=== PATIENT | male | born 1955 | race Caucasian/White ===

== ENCOUNTER 2020-05-19 09:13 | Outpatient (RCR) | payer MEDICARE, BC, SELFPAY ==
[2020-05-19] MEDS: COVID-19 VACC, MRNA(PFIZER)/PF 30 MCG/0.3 ML SYRINGE IM (12:29)
[2020-06-10] MEDS: COVID-19 VACC, MRNA(PFIZER)/PF 30 MCG/0.3 ML SYRINGE IM (10:37)
== END 2020-08-19 23:59 ==
LOC: IMMUN 09:13
PROVIDERS: PCP Internal Medicine; Visit Provider Family Medicine
DX: Z23 Encounter for immunization (principal)
CPT/HCPCS: 0001A; 0002A; 91300

== ENCOUNTER 2023-09-12 10:55 | Observation (INO) | payer MEDICARE, BC, SELFPAY ==
[2023-09-12] VITALS (9 sets, daily range): BP systolic 137–155; BP diastolic 73–97; PULSE 53–69; RESP 12–18; TEMP 36–36.6; O2SAT 96–100; BMI 26.2; BMI 24.5
--- NOTE | 2023-09-12 11:10 | EKG12_ITS ---
Test Reason : CP Blood Pressure : / mmHG Vent. Rate : 064 BPM Atrial Rate : 064 BPM P-R Int : 152 ms QRS Dur : 094 ms QT Int : 388 ms P-R-T Axes : 058 039 009 degrees QTc Int : 400 ms Normal sinus rhythm Normal ECG When compared with ECG of 28-JUN-2022 08:49, Sinus rhythm has replaced Electronic atrial pacemaker QRS duration has decreased Confirmed by NELIA HENDERSON, AJITH ([id number]), editorial clerk FAUSTINO MARRUFO ([id number]) on 09/13/2023 5:59:53 AM Referred By: Confirmed By:AJITH PICKENS MD
[2023-09-12] MEDS: Aspirin 81 MG TAB.CHEW 324 MG PO (11:29)
[2023-09-12 11:30] LABS: Absolute Lymphocyte Count 0.91 X10^3/uL (0.83-4.51); Absolute Neutrophil Count 3.3 X10^3/uL (2.0-7.7); Basophil# 0.04 X10^3/uL; Basophil% 0.8 % (0-1); Eosinophil# 0.05 X10^3/uL; Hematocrit 45.5 % (40-54); Hemoglobin 15.5 g/dL (13.0-16.5); Lymphocyte # 0.91 X10^3/ul (0.83-4.51); Mean Corp Hgb Conc 34.1 g/dL (32-36); Mean Corpuscular Hgb 31.3 pg (27.0-32.0); Mean Corpuscular Volume 91.7 fL (80-94); Mean Platelet Vol. 10.2 fl (6.2-12.0); Monocyte# 0.43 X10^3/uL; NRBC Flagged by Analyzer 0 % (0-5); Neutrophil # 3.34 X10^3/uL (2.7-7.7); Platelet Count 141 K/mm3 (150-450); RBC Distribution Width CV 11.8 % (11.6-14.6); RBC Distribution Width SD 39.8 fl (35.1-43.9); Red Blood Count 4.96 M/mm3 (4.6-6.2); White Blood Count 4.8 K/mm3 (4.4-11.0)
--- NOTE | 2023-09-12 11:45 | RAD_ITS ---
INDICATION: chest pain EXAMINATION/TECHNIQUE: X-RAY - XR Chest 2 Views COMPARISON: Prior study dated: 04/11/2008 FINDINGS: LINES/DEVICES: None. LUNGS: No consolidation, edema or effusion. No pneumothorax. MEDIASTINUM AND CARDIOVASCULAR STRUCTURES: Cardiac silhouette not enlarged. Central airways and mediastinal contour are unremarkable. BONES AND SOFT TISSUES: Degenerative changes of the thoracic spine. RAD/Chest PA and Lateral IMPRESSION: No radiographic evidence of acute cardiopulmonary disease. Electronically Signed: Aubrey Rubin MD at 12:01 EDT ,
[2023-09-12 11:48] LABS: Anion Gap 5 (5-15); BUN 20 mg/dL (7-18); BUN/Creat Ratio 20.7 RATIO (10-20); Calcium,Total 9.2 mg/dL (8.5-10.1); Chloride 103 mmol/L (98-107); Creatinine, Serum 0.97 mg/dL (0.70-1.30); EST Glomerular Filtration Rate 82 mL/min (>60); Est Glom Filt Rate - Afr Amer 99 mL/min (>60); Glucose 100 mg/dL (74-106); Magnesium 2.3 mg/dL (1.6-2.6); Potassium 4.1 mmol/L (3.5-5.1); Sodium Level 140 mmol/L (136-145); Troponin-I HS (w/2H Reflex) 8 pg/mL (3.0-78.0)
--- NOTE | 2023-09-12 11:57 | ED.VIS.CHEST ---
HPI History of Present Illness Chief Complaint: Chest Pain Informant: patient Narrative Narrative: Patient 68-year-old male with history of palpitations (on atenolol), hyperlipidemia on Zetia and remote history of tobacco use presenting with chest pain. Patient's been having exertional chest pain for the past few weeks. He notes he does not get it at rest. It is a discomfort over the center of his chest that radiates to both shoulders on the anterior aspect. He also notes that he had some discomfort in his right shoulder blade for the past few weeks but that that was more from overdoing it at home. Denies any associate numbness or tingling. Does have a lot of anxiety so is not sure if this is related. Denies any swelling of his legs. Denies any history of DVT or PE. Denies any shortness of breath or difficulty breathing. No other complaints or concerns reported at this time. States has been a couple years since his last stress test. He called his PCP today about his symptoms who instructed him to go to the ER for further evaluation. [facility] Medical History Heart disease High cholesterol Home Medications ?Medication ?Instructions ?Recorded ?Last Taken ?Type atenolol 50 mg tablet 25 mg PO BID BLOOD PRESSURE 09/12/23 Unknown History ezetimibe 10 mg tablet 10 mg PO DAILY CHOLESTEROL 09/12/23 Unknown History Allergy/AdvReac Type Severity Reaction Status Date / Time No Known Allergies Allergy Verified 09/12/23 10:56 Social History Smoking Status: Never smoker ROS ROS ED Constitutional Constitutional ED: Denies chills or fever(s) Cardiovascular Cardiovascular: Reports chest pain Respiratory/Chest Respiratory/Chest: Denies cough or dyspnea Gastrointestinal Gastrointestinal: Denies abdominal pain, nausea or vomiting Musculoskeletal Musculoskeletal: Denies back pain Neurologic Neurologic: Denies headache(s) or paresthesias Psychiatric Psychiatric: Reports anxiety Hematologic/Lymphatic Hematologic/Lymphatic: Denies easy bleeding or easy bruising EXAM Physical Exam Const Vital Signs: 09/12/23 10:55 09/12/23 10:56 09/12/23 11:10 Temperature 96.8 F L Temperature Source Temporal Pulse Rate 69 Respiratory Rate 18 Respiratory Effort Normal Non-Labored Blood Pressure 152/87 H Blood Pressure Mean 108 Pulse Ox 100 Oxygen Delivery Method Room Air Room Air 09/12/23 12:55 09/12/23 14:00 Temperature Temperature Source Pulse Rate 57 L 55 L Respiratory Rate 12 13 Respiratory Effort Blood Pressure 140/97 H 149/88 H Blood Pressure Mean 111 108 Pulse Ox 100 99 Oxygen Delivery Method Room Air Room Air Positive well nourished and well developed General Appearance ED: well developed and NAD HEENT Reports moist mucous membranes Neck supple and no JVD Chest Wall inspection of chest normal and palpation of chest normal Resp normal respiratory effort and clear to auscultation bilaterally Cardio regular rate, regular rhythm and no murmurs Peripheral Pulses: radial pulses present and dorsalis pedis pulses present GI normal to inspection, nondistended, normoactive bowel sounds and soft to palpation Extremity normal to inspection General Extremety ED: Negative for edema General Extremity: Negative for edema Neuro oriented x3 Sensorium / Orientation: awake and alert Motor Exam: Negative for general weakness Psych mental status grossly normal Skin no rashes or lesions noted Heart Score History: Highly Suspicious ECG: Normal Age: >/= 65 years Risk Factors: 1 or 2 Risk Factors Troponin: </= Normal Limit Score: 5 MDM MDM MDM Narrative Medical decision making narrative: Patient is evaluated for a couple weeks to 1 month of exertional chest pain. He states it builds up every time he walks. He does not have it at rest. Is in the center of his chest that goes across to both of his shoulders. Currently does not have any symptoms. Story is concerning for exertional angina. Has not had a recent cardiac evaluation including a stress test. Does have some cardiac risk factors include hyperlipidemia, hypertension and history of tobacco use. Cardiac workup in the ER is normal. Low suspicion pulmonary emboli given that he is not having any leg swelling, shortness of breath, tachycardia or hypoxia. Case is discussed with hospitalist, Dr. Begum, patient will be admitted for further cardiac evaluation. He is agreeable this plan of care. Patient is given full dose aspirin in the emergency room. History & Record Review Additional record(s) reviewed:: No prior records Lab Data Attestation: I reviewed the patient's lab results. Labs: Laboratory Results - last 24 hr 09/12/23 09/12/23 11:25 13:31 WBC 4.8 RBC 4.96 Hgb 15.5 Hct 45.5 MCV 91.7 MCH 31.3 MCHC 34.1 RDW Std Deviation 39.8 RDW Coeff of Karen 11.8 Plt Count 141 L MPV 10.2 Immature Gran % (Auto) 0.200 Neut % (Auto) 70.0 Lymph % (Auto) 19.0 Rowan % (Auto) 9.0 Eos % (Auto) 1.0 Baso % (Auto) 0.8 Absolute Neuts (auto) 3.3 Absolute Lymphs (auto) 0.91 Nucleated RBC % 0 Sodium 140 Potassium 4.1 Chloride 103 Carbon Dioxide 32.0 Anion Gap 5 BUN 20 H Creatinine 0.97 Estim Creat Clear Calc 67.20 Est GFR (MDRD) Af Amer 99 Est GFR (MDRD) Non-Af 82 BUN/Creatinine Ratio 20.7 H Glucose 100 Calcium 9.2 Magnesium 2.3 Troponin I High Sens 8 10 Radiography Chest X-Ray - ED: 2 View, Read by ED Physician, Read by Radiologist and No Acute Disease Diagnostic Testing: Clinical Impression(s) from Imaging Studies Chest X-Ray 09/12/23 11:45 IMPRESSION: No radiographic evidence of acute cardiopulmonary disease. Electronically Signed: Aubrey Rubin MD at 12:01 EDT , Rhythm Strip Rhythm Strip: Sinus Rhythm Rate: 64 Ectopy: None EKG Initial EKG: Attestation: I personally reviewed and interpreted this EKG as follows: Interpretation: Sinus Rhythm Comments: Normal sinus rhythm at a rate of 64 bpm Normal axis Normal intervals Normal ST segments Compared to prior EKG on 04/06/2008, no acute changes Prior EKG tracings: available for review Prior: Unchanged Management Discussion w/another healthcare provider: Hospitalist Discharge Plan Triage Chief Complaint: Chest Pain ED Provider: Karen Almonte Dx/Rx/DC Orders Clinical Impression: Angina of effort Prescriptions: No Action atenolol 50 mg tablet 25 mg PO BID ezetimibe 10 mg tablet 10 mg PO DAILY Primary Care Provider: Josette Knapp Referrals: Josette Knapp MD [Primary Care Provider] - Print Language: Nauruan Disposition Disposition: Acute Care Hospital [facility]
[2023-09-12 13:26] LABS: Reflex Troponin-HS? (from REC) Y
[2023-09-12 13:55] LABS: Troponin-I HS 10 pg/mL (3.0-78.0)
--- NOTE | 2023-09-12 16:45 | HP.PCM.HOS_ITS ---
HPI - General General Date of Admission: 09/12/23 Date of Service: 09/12/23 Chief Complaint: Chest discomfort HPI Narrative VERENICE EDWARD, is a 68 M with a history of heart palpitations on atenolol who presented to [facility] ED 09/12/2023 due to 3 weeks of some upper chest pain when he goes on walks and sometimes at rest. In the ED workup negative but given age and symptoms hospitalist contacted for admission. Patient evaluated with family member at bedside. He reports he goes on walks every day and sometimes will get this chest pain sometimes it is in his epigastric region sometimes it is across his upper chest, does report he has anxiety and had an episode where he had little pains all across his upper chest and is feeling anxious but went to bed and was gone in the morning. He called his doctor on Tuesday and they advised to go to the ED which she decided to you today, was able to say why today specifically but felt he needed to get evaluated per his PCPs recommendation. Did have an episode where he felt tired after shoveling snow at the age of 39 and had a cardiac workup at that time which was negative and also previously had a problem with heart palpitations and racing heart and has been on atenolol which significantly helped and has been taking this. Does report chronic problems with anxiety but had no other specific or acute complaints. [facility] Medical History Heart disease High cholesterol Home Medications ?Medication ?Instructions ?Recorded ?Last Taken ?Type atenolol 50 mg tablet 25 mg PO BID BLOOD PRESSURE 09/12/23 Unknown History ezetimibe 10 mg tablet 10 mg PO DAILY CHOLESTEROL 09/12/23 Unknown History Allergy/AdvReac Type Severity Reaction Status Date / Time No Known Allergies Allergy Verified 09/12/23 10:56 Social History Smoking Status: Never smoker ROS ROS Narrative General: Denies fever/chills HENT: Denies headache, often has 1 side of his nose stuffed up, denies sore throat EYES: Denies changes in vision Resp: Denies cough, denies shortness of breath Cardiac: Sometimes epigastric and sometimes upper chest discomfort GI: Denies abdominal pain, denies changes in bowel, denies nausea/vomiting : Denies changes in urination Extremity: Denies swelling MSK: Denies weakness Neuro: Denies any numbness/tingling Heme: Denies any bleeding or bruising Skin: Denies rashes Psychiatric: No complaints voiced Vital Signs Vital Signs Vital Signs: 09/12/23 10:55 09/12/23 10:56 09/12/23 11:10 Temperature 96.8 F L Temperature Source Temporal Pulse Rate 69 Respiratory Rate 18 Respiratory Effort Normal Non-Labored Blood Pressure 152/87 H Blood Pressure Mean 108 Pulse Ox 100 Oxygen Delivery Method Room Air Room Air 09/12/23 12:55 09/12/23 14:00 09/12/23 15:44 Temperature 97.9 F Temperature Source Pulse Rate 57 L 55 L 53 L Respiratory Rate 12 13 14 Respiratory Effort Blood Pressure 140/97 H 149/88 H 147/83 H Blood Pressure Mean 111 108 104 Pulse Ox 100 99 99 Oxygen Delivery Method Room Air Room Air 09/12/23 16:00 Temperature Temperature Source Pulse Rate 56 L Respiratory Rate 14 Respiratory Effort Blood Pressure 146/84 H Blood Pressure Mean 104 Pulse Ox 99 Oxygen Delivery Method Room Air Weight Weight: 76.067 kg Body Mass Index (BMI) 26.2 Physical Exam Narrative General: Alert, oriented, no apparent distress HEENT: Atraumatic, normocephalic Eyes: Anicteric, normal conjunctiva, extraocular movements grossly intact Neck: Supple Respiratory: Clear to auscultation bilaterally, normal respiratory effort Cardiovascular: Regular rate and rhythm GI: Soft, nontender, nondistended Extremities: No edema Musculoskeletal: Moving all extremities Neuro: No overt focal neurological deficits Skin: No rashes appreciated Psych: Cooperative Results Lab / Micro Data 09/12/23 11:25 09/12/23 11:25 Labs: Laboratory Results - last 24 hr 09/12/23 11:25: WBC 4.8, RBC 4.96, Hgb 15.5, Hct 45.5, MCV 91.7, MCH 31.3, MCHC 34.1, RDW Std Deviation 39.8, RDW Coeff of Karen 11.8, Plt Count 141 L, MPV 10.2, Immature Gran % (Auto) 0.200, Neut % (Auto) 70.0, Lymph % (Auto) 19.0, [place]born % (Auto) 9.0, Eos % (Auto) 1.0, Baso % (Auto) 0.8, Absolute Neuts (auto) 3.3, Absolute Lymphs (auto) 0.91, Nucleated RBC % 0, Sodium 140, Potassium 4.1, Chloride 103, Carbon Dioxide 32.0, Anion Gap 5, BUN 20 H, Creatinine 0.97, Estim Creat Clear Calc 67.20, Est GFR (MDRD) Af Amer 99, Est GFR (MDRD) Non-Af 82, B UN/Creatinine Ratio 20.7 H, Glucose 100, Calcium 9.2, Magnesium 2.3, Troponin I High Sens 8 09/12/23 13:31: Troponin I High Sens 10 Rhythm Strip Rhythm Strip: Sinus Rhythm Rate: 64 Ectopy: None Imaging Radiology Impression Chest X-Ray 09/12/23 11:45 IMPRESSION: No radiographic evidence of acute cardiopulmonary disease. Electronically Signed: Aubrey Rubin MD at 12:01 EDT Reading Location ID and State: [facility] / [place] Tel , Service support , Assessment & Plan Assessment/Plan (1) Chest pain: PLAN: Plan #Chest pain -EKG no notable ST changes -Trop within normal limits -Admit to telemetry -Echo ordered -Aspirin -Statin -Lipid panel in AM -Stress test ordered for AM #Hx palpitations -Admitting to tele -on atenolol #DVT ppx: Lovenox Mable Begum MD Time spent in the patient's overall evaluation,decision-making process, review of diagnostic data, adjustment of management, discussion with other providers, nursing nursing and ancillary staff involved in patient's care documentation, 41 minutes Charges/Coding Visit Charges Inpatient E&M: 98334 Init Hosp L1
--- NOTE | 2023-09-12 17:38 | ECHOD_ITS ---
Reason For Study: CHEST PAIN Procedure This was a 2D Doppler, Color Flow transthoracic echocardiogram. Exam performed in department. Left Ventricle Normal LV size. Left ventricular systolic function is normal. The left ventricular ejection fraction is 60 %. No regional wall motion abnormalities noted. Right Ventricle Normal RV size. Normal systolic function. Atria Normal left atrium. Normal right atrium. Mitral Valve Normal mitral valve. Mild (1+) eccentric mitral valve insufficiency. Tricuspid Valve Normal tricuspid valve. Mild tricuspid valve insufficiency. Pulmonary artery systolic pressure is 24 mmHg. Aortic Valve Trisinus/trileaflet aortic valve. Pulmonic Valve Normal pulmonic valve. Great Vessels Normal aortic root. The pulmonary artery is normal size. Normal inferior vena cava. Pericardium/Pleural No pericardial effusion. MMode/2D Measurements & Calculations LVIDd: 3.9 cm IVSd: 1.3 cm LVOT diam: 2.0 cm LVIDs: 2.0 cm LVPWd: 0.94 cm LVOT area: 3.3 cm2 RVDd: 3.7 cm FS: 49.6 % Ao root diam: 3.8 cm LAV(MOD-bp): 49.9 ml LVAd ap4: 23.6 cm2 LAV(MOD-bp) Indexed: 26.6 ml/m2 LVLd ap4: 7.4 cm LAV(MOD-sp2): 57.3 ml EDV(MOD-sp4): 61.5 ml LAV(MOD-sp4): 38.0 ml EDV(sp4-el): 64.1 ml LVAs ap4: 11.4 cm2 LVLs ap4: 6.0 cm ESV(MOD-sp4): 19.8 ml ESV(sp4-el): 18.5 ml EF(MOD-sp4): 67.8 % EF(sp4-el): 71.1 % LVAd ap2: 23.0 cm2 SV(MOD-sp4): 41.7 ml SV(MOD-sp2): 40.7 ml LVLd ap2: 7.7 cm EDV(MOD-sp2): 57.4 ml EDV(sp2-el): 58.4 ml LVAs ap2: 10.9 cm2 LVLs ap2: 6.2 cm ESV(MOD-sp2): 16.6 ml ESV(sp2-el): 16.2 ml EF(MOD-sp2): 71.0 % SV(sp4-el): 45.6 ml LA dimension(2D): 3.2 cm LA A4 area: 15.2 cm2 RA A4 area: 12.3 cm2 TAPSE: 1.7 cm Time Measurements MV dec time: 0.27 sec Doppler Measurements & Calculations MV E max hammad: 62.3 cm/sec Lat Peak E' Hammad: 9.0 cm/sec Med Peak E' Hammad: 7.8 cm/sec MV A max hammad: 57.6 cm/sec E/E' lat: 6.9 E/E' med: 8.0 MV E/A: 1.1 Ao V2 max: 128.1 cm/sec LV V1 max: 97.6 cm/sec MV dec slope: 232.4 cm/sec2 Ao max P.6 mmHg LV V1 max P.8 mmHg Ao V2 mean: 97.9 cm/sec LV V1 mean P.3 mmHg Ao mean P.1 mmHg LV V1 mean: 71.3 cm/sec Ao V2 VTI: 29.6 cm LV V1 VTI: 23.4 cm AV (velocity ratio): 0.79 GARY(I,D): 2.6 cm2 GARY(V,D): 2.5 cm2 SV(LVOT): 76.3 ml PA V2 max: 73.1 cm/sec TR max hammad: 228.4 cm/sec PA max PG (full): 0.17 mmHg TR max P.9 mmHg ECHO/Echo Complete Interpretation Summary Normal LV size. Left ventricular systolic function is normal. The left ventricular ejection fraction is 60 %. Mild (1+) eccentric mitral valve insufficiency. Mild tricuspid valve insufficiency. Pulmonary artery systolic pressure is 24 mmHg. Ordering Physician: Mable Begum Referring Physician: Josette Knapp M.D. Performed By: Angely Yun RDCS
--- NOTE | 2023-09-12 19:48 | EKG12_ITS ---
Test Reason : CP ADMIT Blood Pressure : / mmHG Vent. Rate : 062 BPM Atrial Rate : 062 BPM P-R Int : 148 ms QRS Dur : 092 ms QT Int : 400 ms P-R-T Axes : 048 037 028 degrees QTc Int : 406 ms Normal sinus rhythm Normal ECG When compared with ECG of 12-SEP-2023 11:15, MANUAL COMPARISON REQUIRED, DATA IS UNCONFIRMED Confirmed by Andrae Meyer ([id number]), legal editor FAUSTINO MARRUFO ([id number]) on 09/13/2023 8:36:59 AM Referred By: Confirmed By:Andrae Meyer
[2023-09-12] MEDS: Atenolol 25 MG Tablet PO (21:48)
[2023-09-13] VITALS (7 sets, daily range): BP systolic 116–144; BP diastolic 70–90; PULSE 54–63; RESP 16–18; TEMP 36.3–36.8; O2SAT 98–100
[2023-09-13 05:33] LABS: Absolute Lymphocyte Count 1.25 X10^3/uL (0.83-4.51); Absolute Neutrophil Count 3.3 X10^3/uL (2.0-7.7); Basophil# 0.04 X10^3/uL; Basophil% 0.8 % (0-1); Eosinophil# 0.16 X10^3/uL; Eosinophils% 3.1 % (0-5); Hematocrit 43.1 % (40-54); Hemoglobin 14.5 g/dL (13.0-16.5); Lymphocyte # 1.25 X10^3/ul (0.83-4.51); Mean Corp Hgb Conc 33.6 g/dL (32-36); Mean Corpuscular Hgb 30.7 pg (27.0-32.0); Mean Corpuscular Volume 91.3 fL (80-94); Mean Platelet Vol. 10.5 fl (6.2-12.0); Monocyte# 0.49 X10^3/uL; Monocyte% 9.4 % (0-10); NRBC Flagged by Analyzer 0 % (0-5); Neutrophil # 3.26 X10^3/uL (2.7-7.7); Neutrophil % 62.5 % (47-70); Platelet Count 132 K/mm3 (150-450); RBC Distribution Width CV 11.8 % (11.6-14.6); RBC Distribution Width SD 39.7 fl (35.1-43.9); Red Blood Count 4.72 M/mm3 (4.6-6.2); White Blood Count 5.2 K/mm3 (4.4-11.0)
--- NOTE | 2023-09-13 05:55 | EKG12_ITS ---
Test Reason : AM EKG Blood Pressure : / mmHG Vent. Rate : 062 BPM Atrial Rate : 062 BPM P-R Int : 150 ms QRS Dur : 090 ms QT Int : 410 ms P-R-T Axes : 068 052 005 degrees QTc Int : 416 ms Normal sinus rhythm Normal ECG When compared with ECG of 13-SEP-2023 05:56, MANUAL COMPARISON REQUIRED, DATA IS UNCONFIRMED Confirmed by Andrae Meyer ([id number]), production editor FAUSTINO MARRUFO ([id number]) on 09/16/2023 9:22:43 AM Referred By: Confirmed By:Andrae Meyer
[2023-09-13 06:00] LABS: International Normalized Ratio 1.1; Prothrombin Time (Protime)PT. 14.6 SECONDS (11.7-14.9)
[2023-09-13 06:24] LABS: Anion Gap 5 (5-15); BUN 19 mg/dL (7-18); BUN/Creat Ratio 22.6 RATIO (10-20); Calcium,Total 8.8 mg/dL (8.5-10.1); Chloride 108 mmol/L (98-107); Cholesterol 194 mg/dL (200); Creatinine, Serum 0.84 mg/dL (0.70-1.30); EST Glomerular Filtration Rate 96 mL/min (>60); Est Glom Filt Rate - Afr Amer 116 mL/min (>60); Glucose 98 mg/dL (74-106); High Density Lipoprotein 58 mg/dL; Potassium 3.6 mmol/L (3.5-5.1); Sodium Level 140 mmol/L (136-145); Thyroid Stim Hormone (TSH) 0.95 uIU/mL (0.358-3.74); Triglycerides 65 mg/dL; Very Low Density Lipoprotein 13 mg/dL (5-40)
[2023-09-13] MEDS: Aspirin E.C. 81 MG Tablet PO (06:36)
--- NOTE | 2023-09-13 08:55 | DS.PCM_ITS ---
Providers Date of Admission: 09/12/23 Date of Discharge: 09/13/23 Primary Care Physician: Dr. Josette Knapp MD Reason For Visit: CHEST PAIN R/O Diagnosis Discharge Diagnosis (1) Chest pain: Status: Acute Code(s): R07.9 - Chest pain, unspecified Medications at Discharge Home Medications atenolol 50 mg tablet 25 mg PO BID BLOOD PRESSURE 09/12/23 ezetimibe 10 mg tablet 10 mg PO DAILY CHOLESTEROL 09/12/23 Hospital Course Summary of Care Provided Minutes Spent on Discharge: 32 Hospital Course: Patient is a 68-year-old gentleman who presented with chest pain 1. Chest pain patient was placed on a monitored bed [place] was ruled out with serial cardiac enzymes subsequently underwent a nuclear stress test 2. History of palpitations ? Patient is on atenolol did continue and was placed on continuous daily 3. DVT prophylaxis ? SC Lovenox Physical Exam Narrative GENERAL: cooperative HEENT: Atraumatic; normocephalic EYES; Anicteric, Normal Conjunctiva NECK; supple, normal thyroid, RESPIRATORY: Diminished to auscultation CARDIOVASCULAR: Regular S1 S2, GI: soft, normoactive bowel sounds, : No Renal angle tenderness; EXTREMITIES: No edema, no clubbing, MUSCULOSKELETAL: no muscle wasting NEURO: Awake; no lateralizing signs. SKIN: No Rash PSYCH; Flat affect Weight / BMI Weight Weight: 73.3 kg Body Mass Index (BMI) 24.5 ABG / Lab / Microbiology Data 09/13/23 05:17 09/13/23 05:17 Laboratory: Laboratory Results - last 24 hr 09/12/23 11:25: WBC 4.8, RBC 4.96, Hgb 15.5, Hct 45.5, MCV 91.7, MCH 31.3, MCHC 34.1, RDW Std Deviation 39.8, RDW Coeff of Karen 11.8, Plt Count 141 L, MPV 10.2, Immature Gran % (Auto) 0.200, Neut % (Auto) 70.0, Lymph % (Auto) 19.0, Hettinger % (Auto) 9.0, Eos % (Auto) 1.0, Baso % (Auto) 0.8, Absolute Neuts (auto) 3.3, Absolute Lymphs (auto) 0.91, Nucleated RBC % 0, Sodium 140, Potassium 4.1, Chloride 103, Carbon Dioxide 32.0, Anion Gap 5, BUN 20 H, Creatinine 0.97, Estim Creat Clear Calc 67.20, Est GFR (MDRD) Af Amer 99, Est GFR (MDRD) Non-Af 82, B UN/Creatinine Ratio 20.7 H, Glucose 100, Calcium 9.2, Magnesium 2.3, Troponin I High Sens 8 09/12/23 13:31: Troponin I High Sens 10 09/13/23 05:17: WBC 5.2, RBC 4.72, Hgb 14.5, Hct 43.1, MCV 91.3, MCH 30.7, MCHC 33.6, RDW Std Deviation 39.7, RDW Coeff of Karen 11.8, Plt Count 132 L, MPV 10.5, Immature Gran % (Auto) 0.200, Neut % (Auto) 62.5, Lymph % (Auto) 24.0, Hettinger % (Auto) 9.4, Eos % (Auto) 3.1, Baso % (Auto) 0.8, Absolute Neuts (auto) 3.3, Absolute Lymphs (auto) 1.25, Nucleated RBC % 0, PT 14.6, INR 1.1, Sodium 140, Potassium 3.6, Chloride 108 H, Carbon Dioxide 27.0, Anion Gap 5, BUN 19 H, Creatinine 0.84, Estim Creat Clear Calc 80.30, Est GFR (MDRD) Af Amer 116, Est GFR (MDRD) Non-Af 96, BUN/Creatinine Ratio 22.6 H, Glucose 98, Calcium 8.8, Triglycerides 65, Cholesterol 194, LDL Cholesterol 123, VLDL Cholesterol 13, HDL Cholesterol 58, TSH 0.95 Radiography Diagnostic Testing: Radiology Impression Chest X-Ray 09/12/23 11:45 IMPRESSION: No radiographic evidence of acute cardiopulmonary disease. Electronically Signed: Aubrey Rubin MD at 12:01 EDT , D/C Instructions Discharge Diet: No restrictions Discharge Activity: Return to Normal Activity Call your doctor if you observe: Fever of 101 or Higher, Shortness of breath, Fainting spells and Chest pain Meaningful Use Info Meaningful Use Meaningful Use Diagnoses (Choose all that apply): None applicable Ischemic Stroke Statin Dosing Therapy Reference: STATIN DOSE THERAPY REFERENCE: * Patients > 75 years receive moderate or high dose statin therapy. * Patients 75 years or YOUNGER should receive HIGH intensity statin dose unless contraindicated. You will be required to document reason for non-treatment if statin daily dose does not meet guidelines. HIGH DOSE STATIN THERAPY DAILY Atorvastatin > than or = to 40 mg Rosuvastatin > than or = to 20 mg Amlodipine + Atorvastatin > than or = to 2.5/40 mg Ezetimibe + Simvastatin 10/80 mg Simvastatin 80mg Discharge Plan Admission Admit Date/Time: 09/12/23 16:45 Attending Provider: Fred Izaguirre Primary Care Provider: Josette Knapp Consulting Providers: Mable Begum Discharge Orders/Prescriptions Prescriptions: Continued atenolol 50 mg tablet 25 mg PO BID ezetimibe 10 mg tablet 10 mg PO DAILY Referrals / Follow Up: Josette Knapp MD [Primary Care Provider] - Disposition Disposition (needs filled in before D/C Order can be placed): Home, Self Care Charges/Coding Visit Charges Inpatient E&M: 45429 Disch Hosp >30min
[2023-09-13] MEDS: Atenolol 25 MG Tablet PO ×2 (12:12→21:29)
[2023-09-13] MEDS: Ezetimibe 10 MG Tablet PO (12:12)
--- NOTE | 2023-09-13 16:13 | STRESSREP ---
Stress Test Report Exercise myocardial perfusion stress test. 68-year-old man with a history of chest pain Stress protocol: Resting EKG demonstrates normal sinus rhythm with a rate of 58 bpm resting blood pressure is 142/79 mmHg. The patient exercised according to the regular Chavez protocol for a total duration of 6 minutes and 32 seconds attaining a maximum heart rate of 120 bpm which was 79% of maximum predicted heart rate; the maximum workload was 8.6 metabolic equivalents. At rest there were no ST or T wave changes noted to suggest ischemia and at peak exercise [address] depression was noted in lead V5 and V6 and less than [address] depression noted in the inferior leads suggestive of ischemia. Patient also experienced minimal chest heaviness. This appeared to ease up upon discontinuation of the exercise. The peak blood pressure was 160/70 mmHg with a rate-pressure product of 16,000. Myocardial perfusion protocol. 12 mCi of technetium 99m sestamibi was injected at rest. The patient exercised according to regular Chavez protocol for total duration of 6 minutes and 32 seconds and at peak exercise 34.7 mCi of technetium 99m sestamibi was injected stress images were obtained stress and rest images were reconstructed in comparing the short axis vertical long and horizontal long axis. Gated images were also obtained. Perfusion SPECT analysis: Review of the stress images demonstrate normal uptake of tracer noted in all areas of the myocardium. The basal inferior wall appeared to have significant GI attenuation artifact and ischemia cannot be completely excluded. The resting images demonstrate normal perfusion in all areas. Gated SPECT analysis: The gated ejection fraction is 60%. Conclusion: Abnormal exercise myocardial perfusion stress test at a moderate workload with EKG changes Preserved ejection fraction. Chest discomfort of unknown etiology.
--- NOTE | 2023-09-13 16:23 | PN.HOSP_ITS ---
Reason for Visit Reason for Visit: Diagnoses Chest pain, unspecified (09/12/23) Subjective Subjective Patient is a 68-year-old gentleman who presented with chest pain Objective Data Objective Data Vital Signs: Vital Signs Temp Pulse Resp BP Pulse Ox O2 Del Method FiO2 97.6 F L 58 L 16 144/90 H 100 Room Air 100 09/13/23 12:19 09/13/23 15:50 09/13/23 15:50 09/13/23 12:19 09/13/23 15:50 09/13/23 15:50 09/12/23 18:48 Oxygen Delivery Method Room Air Weight: 73.3 kg Body Mass Index (BMI) 24.5 Intake & Output: Intake and Output for Last 24 Hours 09/11/23 09/12/23 09/13/23 23:59 23:59 23:59 Intake Total 50 / 50 50 / 50 Balance 50 / 50 50 / 50 Lab / Micro Data 09/13/23 05:17 09/13/23 05:17 Labs: Laboratory Results - last 24 hr 09/13/23 05:17: WBC 5.2, RBC 4.72, Hgb 14.5, Hct 43.1, MCV 91.3, MCH 30.7, MCHC 33.6, RDW Std Deviation 39.7, RDW Coeff of Karen 11.8, Plt Count 132 L, MPV 10.5, Immature Gran % (Auto) 0.200, Neut % (Auto) 62.5, Lymph % (Auto) 24.0, [place] % (Auto) 9.4, Eos % (Auto) 3.1, Baso % (Auto) 0.8, Absolute Neuts (auto) 3.3, Absolute Lymphs (auto) 1.25, Nucleated RBC % 0, PT 14.6, INR 1.1, Sodium 140, Potassium 3.6, Chloride 108 H, Carbon Dioxide 27.0, Anion Gap 5, BUN 19 H, Creatinine 0.84, Estim Creat Clear Calc 80.30, Est GFR (MDRD) Af Amer 116, Est GFR (MDRD) Non-Af 96, BUN/Creatinine Ratio 22.6 H, Glucose 98, Calcium 8.8, Triglycerides 65, Cholesterol 194, LDL Cholesterol 123, VLDL Cholesterol 13, HDL Cholesterol 58, TSH 0.95 Radiography Diagnostic Testing: Radiology Impression Echocardiogram 09/12/23 17:38 Interpretation Summary Normal LV size. Left ventricular systolic function is normal. The left ventricular ejection fraction is 60 %. Mild (1+) eccentric mitral valve insufficiency. Mild tricuspid valve insufficiency. Pulmonary artery systolic pressure is 24 mmHg. Ordering Physician: Mable Begum Referring Physician: Josette Knapp M.D. Performed By: Angely Yun RDCS Rhythm Strip Rhythm Strip: Sinus Rhythm Rate: 64 Ectopy: None Assessment & Plan Assessment/Plan (1) Chest pain: PLAN: Plan Patient is a 68-year-old gentleman who presented with chest pain 1. Chest pain patient was placed on a monitored bed [place] was ruled out with serial cardiac enzymes subsequently underwent a nuclear stress test. EKG prior did demonstrate ischemic changes moreover patient did have chest pain. The nuclear images were negative for stress induced ischemia though. Case subsequently discussed with Dr. Manzo with cardiology plan is for patient to undergo left heart catheterization on 09/14/2023. He will be kept n.p.o. after midnight 2. History of palpitations ? Patient did have runs of nonsustained VT on the monitor. On atenolol did continue . -2D echo obtained did show Normal LV size. Left ventricular systolic function is normal. The left ventricular ejection fraction is 60 %. Mild (1+) eccentric mitral valve insufficiency. Mild tricuspid valve insufficiency. Pulmonary artery systolic pressure is 24 mmHg. 3. DVT prophylaxis ? SC Lovenox Time spent in the patient's overall evaluation,decision-making process, review of diagnostic data, adjustment of management, discussion with other providers, nursing nursing and ancillary staff involved in patient's care documentation, 52Minutes Advance planning; did discuss with the patient and family regarding advanced directives as well as CODE STATUS. Did explain the various scenarios involved ( FULL CODE, DNR CCA, DNR CCA with no intubation, and DNR CC and what each meant) patient elected to remain full code with CPR and intubation if warranted. Order was placed. Time spent on discussion 16 minutes. Charges/Coding Multi Select Codes Visit Charges Visit Charges: 11636 Subs Hosp L3 Hospitalists' Procedures Procedures: 98812 Advncd Care Plan 30 Min
--- NOTE | 2023-09-13 16:49 | CASEMGMT ---
Met with patient to complete DOMINIQUE form. DOMINIQUE form explained to patient who voiced understanding and signed form. Original form placed in pt?s chart and copy provided to patient. [place]mery [place], Discharge Planning Asst
--- NOTE | 2023-09-13 17:26 | PCM.CONS.C ---
Assessment & Plan Assessment/Plan (1) Chest pain: PLAN: He presents with chest discomfort and is noted to have an abnormal stress test. My recommendation will be for him to at this juncture undergo a cardiac catheterization for definitive evaluation of his coronary anatomy. In addition especially in light of the fact that he had nonsustained ventricular tachycardia despite a preserved ejection fraction to be helpful to make sure that this is not idiopathic. I explained the above to him the risk benefits alternatives he understands and agrees to proceed. This has been discussed also with the hospitalist. Thank you for allowing me to participate in the care of your patient. Please don't hesitate to call if any issues arise. HPI Consult Data Date of Consult: 09/13/23 HPI Narrative HPI Narrative: VERENICE EDWARD, is a 68 M who presents to the emergency room with upper chest discomfort when he goes walks and sometimes at rest. It is not clear why he decided to come to the emergency room yesterday. But he has had a history of palpitations in the past for which he says that atenolol has helped significantly with this. He also has a history of anxiety. He describes this discomfort is across his chest sometimes radiating to his epigastrium. He was evaluated in the emergency room EKG was noted to be normal sinus rhythm with no acute changes cardiac enzymes were normal and he was admitted for a stress test. He underwent a stress test where there was reproducibility in the chest discomfort with some ST depression though the cardiac images were normal. After discussion with the hospitalist it was felt that he should be seen by cardiology for further workup and evaluation. He also while on admission had a 9 beat run of nonsustained VT. FORMERLY [facility] Medical History Heart disease High cholesterol Home Medications ?Medication ?Instructions ?Recorded ?Last Taken ?Type atenolol 50 mg tablet 25 mg PO BID BLOOD PRESSURE 09/12/23 Unknown History ezetimibe 10 mg tablet 10 mg PO DAILY CHOLESTEROL 09/12/23 Unknown History Allergy/AdvReac Type Severity Reaction Status Date / Time No Known Allergies Allergy Verified 09/12/23 10:56 Social History Smoking Status: Former smoker ROS Constitutional Constitutional: Denies fever(s) or weight loss Eyes Eyes: Reports systems reviewed and no addt'l complaints, except as documented ENT HEENT: Reports systems reviewed and no addt'l complaints, except as documented Cardiovascular Cardiovascular: Reports chest pain with activity and dyspnea on exertion; Denies chest pain at rest, dyspnea at rest, edema, palpitations or paroxysmal nocturnal dyspnea Respiratory/Chest Respiratory/Chest: Denies dyspnea on exertion, productive cough, shortness of breath at rest or shortness of breath with exertion Gastrointestinal Gastrointestinal: Denies change in bowel habits, nausea, vomiting or weight changes Genitourinary Genitourinary: Denies difficulty urinating Musculoskeletal Musculoskeletal: Denies joint stiffness or muscle weakness Integumentary Integumentary: Denies lesions Neurologic Neurologic: Denies dizziness or syncope Psychiatric Psychiatric: Denies anxiety Endocrine Endocrinology: Denies excessive sweating or fatigue Hematologic/Lymphatic Hematologic/Lymphatic: Denies anemia Allergic/Immunologic Allergic/Immunologic: Denies seasonal rhinorrhea Physical Exam Const alert, oriented x3 and no apparent distress General Appearance: cooperative HEENT hearing grossly normal bilaterally Head and Scalp: atraumatic Eyes EOMs intact bilaterally Neck General: normal visual inspection Chest inspection of chest normal and palpation of chest normal Resp normal respiratory effort Auscultation: clear to auscultation bilaterally Cardio regular rate, regular rhythm, S1 normal heart sound and S2 normal heart sound Jugular Venous Distention: JVD GI normal to inspection, nondistended, normoactive bowel sounds Extremity normal capillary refill and no pedal edema Peripheral Pulses: Yes pulses 2+ throughout and femoral pulses present Skin no rashes or lesions noted Neuro oriented x3 and CN's II-XII intact bilaterally Psych Appearance: grossly normal and appropriate Risk Stratification Risk Stratification Applicable: Yes Age >/= 65: Yes >/= 3 CAD Risk Factors (HTN, HLD, DM, family hx of CAD, or current smoker): No Aspirin Use in the Past 7 Days: No Severe Angina (>/= episodes in 24 hours): No EKG ST Changes >/= 0.5mm: No Positive Cardiac Marker: No BELKIS Risk Stratification Score: 1 BELKIS % Risk: 5% Risk Objective Data Vital Signs: Vital Signs Temp Pulse Resp BP Pulse Ox O2 Del Method FiO2 97.6 F L 58 L 16 144/90 H 100 Room Air 100 09/13/23 12:19 09/13/23 15:50 09/13/23 15:50 09/13/23 12:19 09/13/23 15:50 09/13/23 15:50 09/12/23 18:48 Oxygen Delivery Method Room Air Weight: 161 lb 9.581 oz Body Mass Index (BMI) 24.5 Intake & Output: Intake and Output for Last 24 Hours 09/11/23 09/12/23 09/13/23 23:59 23:59 23:59 Intake Total 50 / 50 50 / 50 Balance 50 / 50 50 / 50 Lab / Micro Data 09/13/23 05:17 09/13/23 05:17 Labs: Laboratory Results - last 24 hr 09/13/23 05:17: WBC 5.2, RBC 4.72, Hgb 14.5, Hct 43.1, MCV 91.3, MCH 30.7, MCHC 33.6, RDW Std Deviation 39.7, RDW Coeff of Karen 11.8, Plt Count 132 L, MPV 10.5, Immature Gran % (Auto) 0.200, Neut % (Auto) 62.5, Lymph % (Auto) 24.0, [place] % (Auto) 9.4, Eos % (Auto) 3.1, Baso % (Auto) 0.8, Absolute Neuts (auto) 3.3, Absolute Lymphs (auto) 1.25, Nucleated RBC % 0, PT 14.6, INR 1.1, Sodium 140, Potassium 3.6, Chloride 108 H, Carbon Dioxide 27.0, Anion Gap 5, BUN 19 H, Creatinine 0.84, Estim Creat Clear Calc 80.30, Est GFR (MDRD) Af Amer 116, Est GFR (MDRD) Non-Af 96, BUN/Creatinine Ratio 22.6 H, Glucose 98, Calcium 8.8, Triglycerides 65, Cholesterol 194, LDL Cholesterol 123, VLDL Cholesterol 13, HDL Cholesterol 58, TSH 0.95 Rhythm Strip Rhythm Strip: Sinus Rhythm Rate: 64 Ectopy: None Cardiology Labs/Tests 09/13/23 05:17: WBC 5.2, RBC 4.72, Hgb 14.5, Hct 43.1, MCV 91.3, MCH 30.7, MCHC 33.6, Plt Count 132 L, MPV 10.5, Immature Gran % (Auto) 0.200, Neut % (Auto) 62.5, Lymph % (Auto) 24.0, [place] % (Auto) 9.4, Eos % (Auto) 3.1, Baso % (Auto) 0.8, Absolute Neuts (auto) 3.3, Nucleated RBC % 0, PT 14.6, INR 1.1, Sodium 140, Potassium 3.6, Chloride 108 H, Carbon Dioxide 27.0, Anion Gap 5, BUN 19 H, Creatinine 0.84, Est GFR (MDRD) Af Amer 116, Est GFR (MDRD) Non-Af 96, BUN/Creatinine Ratio 22.6 H, Glucose 98, Calcium 8.8, Triglycerides 65, Cholesterol 194, LDL Cholesterol 123, VLDL Cholesterol 13, HDL Cholesterol 58 Rhythm: EKG: ECHO: Stress Test: Cardiac Cath: PCI: CT Surgery: Holter monitor: EPS: PPM: CXR: Chest CT Scan: Radiography Diagnostic Testing: Radiology Impression Echocardiogram 09/12/23 17:38 Interpretation Summary Normal LV size. Left ventricular systolic function is normal. The left ventricular ejection fraction is 60 %. Mild (1+) eccentric mitral valve insufficiency. Mild tricuspid valve insufficiency. Pulmonary artery systolic pressure is 24 mmHg. Ordering Physician: Mable Begum Referring Physician: Josette Knapp M.D. Performed By: Angely Yun RDCS
[2023-09-13] MEDS: Enoxaparin 40 MG/0.4 ML Syringe SC (18:52)
[2023-09-13] MEDS: 0.9% Normal Saline (1000mL) 1,000 ML 15 ML IV (18:55)
[2023-09-14] VITALS (17 sets, daily range): BP systolic 96–143; BP diastolic 60–105; PULSE 51–60; RESP 12–18; TEMP 36.3–36.9; O2SAT 97–100
--- NOTE | 2023-09-14 05:55 | EKG12_ITS ---
Test Reason : AM EKG Blood Pressure : / mmHG Vent. Rate : 052 BPM Atrial Rate : 052 BPM P-R Int : 150 ms QRS Dur : 098 ms QT Int : 428 ms P-R-T Axes : 064 056 033 degrees QTc Int : 398 ms Sinus bradycardia Prominent T waves When compared with ECG of 12-SEP-2023 19:58, MANUAL COMPARISON REQUIRED, DATA IS UNCONFIRMED Confirmed by Andrae Meyer ([id number]), newspaper managing editor FAUSTINO MARRUFO ([id number]) on 09/16/2023 9:23:38 AM Referred By: Confirmed By:Andrae Meyer
[2023-09-14] MEDS: Atenolol 25 MG Tablet PO (06:14)
[2023-09-14] MEDS: Aspirin E.C. 81 MG Tablet PO (06:14)
--- NOTE | 2023-09-14 06:17 | PCM.PN.HOSP ---
Reason for Visit Reason for Visit: Diagnoses Chest pain, unspecified (09/12/23) Subjective Subjective Patient is scheduled to undergo left heart catheterization. Patient seen had a relatively uneventful night Objective Data Objective Data Vital Signs: Vital Signs Temp Pulse Resp BP Pulse Ox O2 Del Method FiO2 97.7 F L 60 18 143/85 H 98 Room Air 100 09/14/23 06:13 09/14/23 06:13 09/14/23 06:13 09/14/23 06:13 09/14/23 06:13 09/14/23 06:13 09/12/23 18:48 Oxygen Delivery Method Room Air Weight: 73.3 kg Body Mass Index (BMI) 24.5 Intake & Output: Intake and Output for Last 24 Hours 09/12/23 09/13/23 09/14/23 23:59 23:59 23:59 Intake Total 50 / 50 170 / 170 Balance 50 / 50 170 / 170 Lab / Micro Data 09/14/23 06:10 09/14/23 06:10 Labs: Laboratory Results - last 24 hr 09/13/23 05:17: Sodium 140, Potassium 3.6, Chloride 108 H, Carbon Dioxide 27.0, Anion Gap 5, BUN 19 H, Creatinine 0.84, Estim Creat Clear Calc 80.30, Est GFR (MDRD) Af Amer 116, Est GFR (MDRD) Non-Af 96, BUN/Creatinine Ratio 22.6 H, Glucose 98, Calcium 8.8, Triglycerides 65, Cholesterol 194, LDL Cholesterol 123, VLDL Cholesterol 13, HDL Cholesterol 58, TSH 0.95 Radiography Diagnostic Testing: Radiology Impression Echocardiogram 09/12/23 17:38 Interpretation Summary Normal LV size. Left ventricular systolic function is normal. The left ventricular ejection fraction is 60 %. Mild (1+) eccentric mitral valve insufficiency. Mild tricuspid valve insufficiency. Pulmonary artery systolic pressure is 24 mmHg. Ordering Physician: Mable Begum Referring Physician: Josette Knapp M.D. Performed By: Angely Yun RDCS Rhythm Strip Rhythm Strip: Sinus Rhythm Rate: 64 Ectopy: None Physical Exam Narrative GENERAL: cooperative HEENT: Atraumatic; normocephalic EYES; Anicteric, Normal Conjunctiva NECK; supple, normal thyroid, RESPIRATORY: Diminished to auscultation CARDIOVASCULAR: Regular S1 S2, GI: soft, normoactive bowel sounds, : No Renal angle tenderness; EXTREMITIES: No edema, no clubbing, MUSCULOSKELETAL: no muscle wasting NEURO: Awake; no lateralizing signs. SKIN: No Rash PSYCH; Flat affect Assessment & Plan Assessment/Plan (1) Chest pain: PLAN: Plan Patient is a 68-year-old gentleman who presented with chest pain 1. Chest pain patient was placed on a monitored bed [place] was ruled out with serial cardiac enzymes subsequently underwent a nuclear stress test. EKG prior did demonstrate ischemic changes moreover patient did have chest pain. The nuclear images were negative for stress induced ischemia though. Case subsequently discussed with Dr. Manzo with cardiology plan is for patient to undergo left heart catheterization on 09/14/2023. He will be kept n.p.o. after midnight -09/14/2023;Patient is scheduled to undergo left heart catheterization 2. History of palpitations ? Patient did have runs of nonsustained VT on the monitor. On atenolol did continue . -2D echo obtained did show Normal LV size. Left ventricular systolic function is normal. The left ventricular ejection fraction is 60 %. Mild (1+) eccentric mitral valve insufficiency. Mild tricuspid valve insufficiency. Pulmonary artery systolic pressure is 24 mmHg. 3. DVT prophylaxis ? SC Lovenox Time spent in the patient's overall evaluation,decision-making process, review of diagnostic data, adjustment of management, discussion with other providers, nursing nursing and ancillary staff involved in patient's care documentation, 36 Minutes Charges/Coding Visit Charges Inpatient E&M: 49227 Subs Hosp L2
[2023-09-14 06:52] LABS: Absolute Lymphocyte Count 1.31 X10^3/uL (0.83-4.51); Absolute Neutrophil Count 3.7 X10^3/uL (2.0-7.7); Basophil# 0.06 X10^3/uL; Basophil% 1.1 % (0-1); Eosinophil# 0.13 X10^3/uL; Eosinophils% 2.3 % (0-5); Hematocrit 46.3 % (40-54); Hemoglobin 15.7 g/dL (13.0-16.5); Lymphocyte # 1.31 X10^3/ul (0.83-4.51); Lymphocyte % 23.4 % (19-41); Mean Corp Hgb Conc 33.9 g/dL (32-36); Mean Corpuscular Volume 91.3 fL (80-94); Mean Platelet Vol. 10.5 fl (6.2-12.0); Monocyte# 0.43 X10^3/uL; Monocyte% 7.7 % (0-10); NRBC Flagged by Analyzer 0 % (0-5); Neutrophil # 3.65 X10^3/uL (2.7-7.7); Neutrophil % 65.3 % (47-70); Platelet Count 155 K/mm3 (150-450); RBC Distribution Width CV 11.8 % (11.6-14.6); RBC Distribution Width SD 39.6 fl (35.1-43.9); Red Blood Count 5.07 M/mm3 (4.6-6.2); White Blood Count 5.6 K/mm3 (4.4-11.0)
[2023-09-14 06:56] LABS: Anion Gap 4 (5-15); BUN 15 mg/dL (7-18); BUN/Creat Ratio 15.8 RATIO (10-20); Calcium,Total 9.1 mg/dL (8.5-10.1); Chloride 106 mmol/L (98-107); Creatinine, Serum 0.95 mg/dL (0.70-1.30); EST Glomerular Filtration Rate 84 mL/min (>60); Est Glom Filt Rate - Afr Amer 101 mL/min (>60); Glucose 93 mg/dL (74-106); Potassium 3.8 mmol/L (3.5-5.1); Sodium Level 138 mmol/L (136-145)
--- NOTE | 2023-09-14 08:54 | PN.CARD_ITS ---
Subjective Subjective Patient seen and evaluated. Underwent cardiac catheterization today. Objective Data Vital Signs: Vital Signs Temp Pulse Resp BP Pulse Ox O2 Del Method FiO2 97.4 F L 60 16 130/81 H 97 Room Air 100 09/14/23 08:00 09/14/23 08:00 09/14/23 08:00 09/14/23 08:00 09/14/23 08:00 09/14/23 08:00 09/12/23 18:48 Oxygen Delivery Method Room Air Weight: 161 lb 9.581 oz Body Mass Index (BMI) 24.5 Intake & Output: Intake and Output for Last 24 Hours 09/12/23 09/13/23 09/14/23 23:59 23:59 23:59 Intake Total 50 / 50 170 / 170 Balance 50 / 50 170 / 170 Lab / Micro Data 09/14/23 06:10 09/14/23 06:10 Labs: Laboratory Results - last 24 hr 09/14/23 06:10: WBC 5.6, RBC 5.07, Hgb 15.7, Hct 46.3, MCV 91.3, MCH 31.0, MCHC 33.9, RDW Std Deviation 39.6, RDW Coeff of Karen 11.8, Plt Count 155, MPV 10.5, Immature Gran % (Auto) 0.200, Neut % (Auto) 65.3, Lymph % (Auto) 23.4, [place] % (Auto) 7.7, Eos % (Auto) 2.3, Baso % (Auto) 1.1 H, Absolute Neuts (auto) 3.7, Absolute Lymphs (auto) 1.31, Nucleated RBC % 0, Sodium 138, Potassium 3.8, Chloride 106, Carbon Dioxide 28.0, Anion Gap 4 L, BUN 15, Creatinine 0.95, Estim Creat Clear Calc 71.00, Est GFR (MDRD) Af Amer 101, Est GFR (MDRD) Non-Af 84, BUN/Creatinine Ratio 15.8, Glucose 93, Calcium 9.1 Rhythm Strip Rhythm Strip: Sinus Rhythm Rate: 64 Ectopy: None Cardiology Labs/Tests 09/14/23 06:10: WBC 5.6, RBC 5.07, Hgb 15.7, Hct 46.3, MCV 91.3, MCH 31.0, MCHC 33.9, Plt Count 155, MPV 10.5, Immature Gran % (Auto) 0.200, Neut % (Auto) 65.3, Lymph % (Auto) 23.4, [place] % (Auto) 7.7, Eos % (Auto) 2.3, Baso % (Auto) 1.1 H, Absolute Neuts (auto) 3.7, Nucleated RBC % 0, Sodium 138, Potassium 3.8, Chloride 106, Carbon Dioxide 28.0, Anion Gap 4 L, BUN 15, Creatinine 0.95, Est GFR (MDRD) Af Amer 101, Est GFR (MDRD) Non-Af 84, BUN/Creatinine Ratio 15.8, Glucose 93, Calcium 9.1 Rhythm: EKG: ECHO: Stress Test: Cardiac Cath: PCI: CT Surgery: Holter monitor: EPS: PPM: CXR: Chest CT Scan: Radiography Diagnostic Testing: Radiology Impression Echocardiogram 09/12/23 17:38 Interpretation Summary Normal LV size. Left ventricular systolic function is normal. The left ventricular ejection fraction is 60 %. Mild (1+) eccentric mitral valve insufficiency. Mild tricuspid valve insufficiency. Pulmonary artery systolic pressure is 24 mmHg. Ordering Physician: Mable Begum Referring Physician: Josette Knapp M.D. Performed By: Angely Yun RDCS Physical Exam Const alert, oriented x3 and no apparent distress General Appearance: cooperative HEENT hearing grossly normal bilaterally Head and Scalp: atraumatic Eyes EOMs intact bilaterally Neck General: normal visual inspection Chest inspection of chest normal and palpation of chest normal Resp normal respiratory effort Auscultation: clear to auscultation bilaterally Cardio regular rate, regular rhythm, S1 normal heart sound and S2 normal heart sound Jugular Venous Distention: JVD GI normal to inspection, nondistended, normoactive bowel sounds Extremity normal capillary refill and no pedal edema Peripheral Pulses: Yes pulses 2+ throughout and femoral pulses present Skin no rashes or lesions noted Neuro oriented x3 and CN's II-XII intact bilaterally Psych Appearance: grossly normal and appropriate Assessment & Plan Assessment/Plan (1) Chest pain: PLAN: He presents with chest discomfort and is noted to have an abnormal stress test. He underwent a cardiac catheterization today which demonstrated severe triple- vessel disease. His ejection fraction is preserved and he appears to have stable angina. Recommendation will be to be in contact with a cardiac surgeon for outpatient evaluation for coronary bypass surgery. In the meantime we will continue to optimize his care as follows: Continue aspirin Continue beta-florecita Add Lipitor 40 mg a day. Add isosorbide to 30 mg a day. He can likely be discharged later on today for outpatient follow-up. Will make arrangements Thank you for allowing me to participate in the care of your patient. Please don't hesitate to call if any issues arise.
--- NOTE | 2023-09-14 09:05 | CL.D_ITS ---
Patient Name: VERENICE EDWARD Study Date: 09/14/2023 Performing: Candido Askew MD Ht: 68 inches 172.72 cm : 1955 Wt: 161.8 lbs 73.3 kg Age: 68 Gender: male BSA: 1.87 PROCEDURE(S) PERFORMED DC01-(90029)LHC/COR/LV CLINICAL PROFILE AND INDICATIONS Indications: Suspected CAD Heart Failure: None Stress/Imaging Date: 09/13/23Stress Test with SPECT MPI: Positive Intermediate Risk CAD Presentations: Stable angina. CONCLUSIONS Severe triple-vessel disease with calcified left anterior descending artery and right coronary artery, preserved ejection fraction. RECOMMENDATIONS Will recommend coronary bypass surgery. DESCRIPTION OF PROCEDURE The patient arrived to the procedure lab. The risks and benefits of the procedure as well as a full description of our services here and current unavailability of surgical backup were fully explained to the patient and/or their significant other prior to the catheterization. The Timeout was completed, verifying the correct patient and procedure. The patient's procedural site was prepped and draped in the usual fashion. Local anesthetic was given subcutaneously to right radial region with Lidocaine 2%. Using a modified Seldinger technique, arterial access was obtained via the right radial artery, a 6Fr sheath was inserted. Right Coronary Artery selective angiography was then performed in multiple views using a 5 Fr. 4.0 [place] catheter. Left Coronary Artery selective angiography was performed in multiple views using a 5 Fr. 4.0 [place] catheter. Left Ventriculography was performed in [place] projection using a 5 Fr. [place] catheter. LV to AO pullback pressures were then recorded.The arterial sheath was pulled and a TR Band was applied for hemostasis w/ 10ml air CORONARY ANGIOGRAPHY DOMINANCE: Right Dominant LEFT HEART ASSESSMENT Left Ventricular Ejection Fraction: by LV Gram 60 % Normal LV wall motion Normal Left Ventricular systolic function LEFT MAIN: Calcification is noted with distal 20 to 30% stenosis LEFT ANTERIOR DESCENDING ARTERY: Severe calcification, There is moderate disease noted in the proximal segment and a very calcified segment with 2 diagonal branches with high-grade stenosis in the mid segment of the left anterior descending artery has mild diffuse disease in the distal segment has a long area of stenosis. CIRCUMFLEX ARTERY: Severely diseased vessel with first obtuse marginal branch with high-grade proximal stenosis and 2 obtuse marginal branches with severe disease in the mid circumflex artery is totally occluded and also distal left to right collaterals are seen. RIGHT CORONARY ARTERY: Moderate calcification Proximal to mid right coronary artery with high-grade 90% stenosis in the mid to distal 90% stenosis and distal moderate diffuse disease. The posterior descending artery appears to be totally occluded. COMPLICATIONS No Complications PROCEDURE MEDICATIONS Versed 1 mg IV Fentanyl 50 mcg IV Oxygen: 2 L/min via nasal cannula Heparin given IA 09/14/2023 08:21:04 Verapamil 2.5mg, Ntg 100mcgs, 3000 units of Heparin given IA 09/14/2023 08:21:04 SUMMARY OF HEMODYNAMIC DATA Time AIR REST ECG 08:08:07 AO 119/73 (90) SA 08:30:48 LV 136/3, 12 08:38:48 LV 131/6, 11 08:38:57 LV 132/8, 19 08:40:07 LV 126/8, 16 08:40:16 LVp 136/8, 17 08:40:18 AOp 141/74 (102) 08:40:25 Signed By Candido Askew MD On 09/14/2023 09:04:43 Candido Askew MD
--- NOTE | 2023-09-14 09:13 | DS.PCM_ITS ---
Providers Date of Admission: 09/12/23 Date of Discharge: 09/14/23 Primary Care Physician: Dr. Josette Knapp MD Consultations 09/13/23 16:18 Consult: Cardiology Routine Consulting Provider: Candido Askew Reason for Consult: Unstable angina EMERGENT Consult: No MD Notified: Yes Date Notified: 09/13/23 Time Notified: 16:19 Method of Notification: Verbal Reason For Visit: CHEST PAIN R/O Diagnosis Discharge Diagnosis (1) Chest pain: Status: Acute Code(s): R07.9 - Chest pain, unspecified Plan Patient is a 68-year-old gentleman who presented with chest pain 1. Chest pain patient was placed on a monitored bed NH was ruled out with serial cardiac enzymes subsequently underwent a nuclear stress test. EKG prior did demonstrate ischemic changes moreover patient did have chest pain. The nuclear images were negative for stress induced ischemia though. Case subsequently discussed with Dr. Manzo with cardiology plan is for patient to undergo left heart catheterization on 09/14/2023. He will be kept n.p.o. after midnight -09/14/2023;Patient is scheduled to undergo left heart catheterization ? 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 Dr. Askew with cardiology did not review for patient to follow-up with Dr. Carter Chavis cardiothoracic surgeon at [facility] in [place]. Patient has an appointment on 09/20/2023 at 0900 2. History of palpitations ? Patient did have runs of nonsustained VT on the monitor. On atenolol did continue . -2D echo obtained did show Normal LV size. Left ventricular systolic function is normal. The left ventricular ejection fraction is 60 %. Mild (1+) eccentric mitral valve insufficiency. Mild tricuspid valve insufficiency. Pulmonary artery systolic pressure is 24 mmHg. 3. DVT prophylaxis ? SC Lovenox Time spent in the patient's overall evaluation,decision-making process, review of diagnostic data, adjustment of management, discussion with other providers, nursing nursing and ancillary staff involved in patient's care documentation, 36 Minutes Medications at Discharge Home Medications atenolol 50 mg tablet 25 mg PO BID BLOOD PRESSURE 09/12/23 ezetimibe 10 mg tablet 10 mg PO DAILY CHOLESTEROL 09/12/23 aspirin 81 mg tablet,delayed release 81 mg PO BREAKFAST #90 tabs 09/14/23 atorvastatin 40 mg tablet 40 mg PO QHS #90 tabs 09/14/23 Hospital Course Procedures 2-D Echocardiogram and Cardiac catheterization Physical Exam Narrative GENERAL: cooperative HEENT: Atraumatic; normocephalic EYES; Anicteric, Normal Conjunctiva NECK; supple, normal thyroid, RESPIRATORY: Diminished to auscultation CARDIOVASCULAR: Regular S1 S2, GI: soft, normoactive bowel sounds, : No Renal angle tenderness; EXTREMITIES: No edema, no clubbing, MUSCULOSKELETAL: no muscle wasting NEURO: Awake; no lateralizing signs. SKIN: No Rash PSYCH; Flat affect Weight / BMI Weight Weight: 73.3 kg Body Mass Index (BMI) 24.5 ABG / Lab / Microbiology Data 09/14/23 06:10 09/14/23 06:10 Laboratory: Laboratory Results - last 24 hr 09/14/23 06:10: WBC 5.6, RBC 5.07, Hgb 15.7, Hct 46.3, MCV 91.3, MCH 31.0, MCHC 33.9, RDW Std Deviation 39.6, RDW Coeff of Karen 11.8, Plt Count 155, MPV 10.5, Immature Gran % (Auto) 0.200, Neut % (Auto) 65.3, Lymph % (Auto) 23.4, [place] % (Auto) 7.7, Eos % (Auto) 2.3, Baso % (Auto) 1.1 H, Absolute Neuts (auto) 3.7, Absolute Lymphs (auto) 1.31, Nucleated RBC % 0, Sodium 138, Potassium 3.8, Chloride 106, Carbon Dioxide 28.0, Anion Gap 4 L, BUN 15, Creatinine 0.95, Estim Creat Clear Calc 71.00, Est GFR (MDRD) Af Amer 101, Est GFR (MDRD) Non-Af 84, BUN/Creatinine Ratio 15.8, Glucose 93, Calcium 9.1 Radiography Diagnostic Testing: Radiology Impression Echocardiogram 09/12/23 17:38 Interpretation Summary Normal LV size. Left ventricular systolic function is normal. The left ventricular ejection fraction is 60 %. Mild (1+) eccentric mitral valve insufficiency. Mild tricuspid valve insufficiency. Pulmonary artery systolic pressure is 24 mmHg. Ordering Physician: Mable Begum Referring Physician: Josette Knapp M.D. Performed By: Angely Yun RDCS D/C Instructions Discharge Diet: Low fat / Low cholesterol Discharge Activity: Return to Normal Activity Call your doctor if you observe: Fever of 101 or Higher, Shortness of breath, Fainting spells and Chest pain Meaningful Use Info Meaningful Use Meaningful Use Diagnoses (Choose all that apply): None applicable Ischemic Stroke Statin Dosing Therapy Reference: STATIN DOSE THERAPY REFERENCE: * Patients > 75 years receive moderate or high dose statin therapy. * Patients 75 years or YOUNGER should receive HIGH intensity statin dose unless contraindicated. You will be required to document reason for non-treatment if statin daily dose does not meet guidelines. HIGH DOSE STATIN THERAPY DAILY Atorvastatin > than or = to 40 mg Rosuvastatin > than or = to 20 mg Amlodipine + Atorvastatin > than or = to 2.5/40 mg Ezetimibe + Simvastatin 10/80 mg Simvastatin 80mg Discharge Plan Admission Admit Date/Time: 09/12/23 16:45 Attending Provider: Fred Izaguirre Primary Care Provider: Josette Knapp Consulting Providers: Mable Begum; Candido Askew Discharge Orders/Prescriptions Prescriptions: New aspirin 81 mg Tablet,Delayed Release (Dr/Ec) 81 mg PO BREAKFAST Qty: 90 0RF atorvastatin 40 mg Tablet 40 mg PO QHS Qty: 90 0RF Continued atenolol 50 mg tablet 25 mg PO BID ezetimibe 10 mg tablet 10 mg PO DAILY Referrals / Follow Up: Carter Chavis MD [Non-Staff] - 09/20/23 9:00 am Josette Knapp MD [Primary Care Provider] - Within 2 Weeks Disposition Disposition (needs filled in before D/C Order can be placed): Home, Self Care Charges/Coding Visit Charges Inpatient E&M: 73774 Disch Hosp >30min
--- NOTE | 2023-09-14 10:17 | CASEMGMT ---
JULES VILLAREAL NOTE: Discharge order is in. RN CM to room. Introduced self and role. Pt resting in bed. Pt denies have concerns w/going home @ discharge. He was made aware Rx's have been sent to [facility] retail pharmacy, which are atorvastatin and ASA 81 mg. He voices concern re: being on a statin, stating he has been on a statin in the past and it elevated his enzymes and it had to be discontinued. JULES Cheung, made aware and states will notify physician. Radha ALCANTARN JULES CM
[2023-09-14] MEDS: Ezetimibe 10 MG Tablet PO (10:21)
[2023-09-14] MEDS: Isosorbide Mononitrate 30 MG Tablet PO (10:21)
== END 2023-09-14 09:12 | disposition home or self-care (01) ==
LOC: ED 15:32 → PCU 15:43
PROVIDERS: Internal Medicine; Admitting Provider Internal Medicine; Emergency Provider Emergency Medicine; PCP Internal Medicine; Visit Provider Internal Medicine
DX: I25.118 Atherosclerotic heart disease of native coronary artery with other forms of angina pectoris (principal); R07.89 Other chest pain; I10 Essential (primary) hypertension; E78.00 Pure hypercholesterolemia, unspecified; Z87.891 Personal history of nicotine dependence; R00.2 Palpitations; Z79.899 Other long term (current) drug therapy; I08.1 Rheumatic disorders of both mitral and tricuspid valves
CPT/HCPCS: 36415; 71046; 78452; 80048; 80061; 83735; 84443; 84484; 85025; 85610; 93005; 93017; 93306; 93458; 96372; 99152; 99153; 99221; 99285; A9500; J7030; Q9967; A4216; C1769; C1894; G0378

== ENCOUNTER → 2023-10-18 | Outpatient (CLI) | payer MEDICARE, BC, SELFPAY ==
--- NOTE | 2023-10-18 15:28 | RAD_ITS ---
INDICATION: Crackles in lungs, moist cough EXAMINATION/TECHNIQUE: X-RAY - XR Chest 2 Views COMPARISON: September 12, 2023. FINDINGS: LINES/DEVICES: None. LUNGS: No consolidation or florid edema. Small bilateral layering pleural effusions. No pneumothorax. MEDIASTINUM AND CARDIOVASCULAR STRUCTURES: Cardiac size within normal limits. BONES AND SOFT TISSUES: Sternotomy wires are midline and intact.. RAD/Chest PA and Lateral IMPRESSION: Prior sternotomy with small bilateral layering pleural effusions. Electronically Signed: Clint Zavala MD at 22:47 EDT ,
== END | disposition home or self-care (01) ==
LOC: RAD 15:27
PROVIDERS: PCP Internal Medicine; Referring Provider Nurse Practitioner Family; Visit Provider Nurse Practitioner Family
DX: R60.0 Localized edema (principal); R09.89 Other specified symptoms and signs involving the circulatory and respiratory systems; I25.10 Atherosclerotic heart disease of native coronary artery without angina pectoris; Z95.1 Presence of aortocoronary bypass graft
CPT/HCPCS: 71046

== ENCOUNTER → 2023-11-09 | Outpatient (CLI) | payer MEDICARE, BC, SELFPAY ==
--- NOTE | 2023-11-09 13:58 | PCM.CR.ITP ---
Diagnosis General Information Admitting Diagnosis: CABG Personal Learning Style:: Audio/Visual, Demonstration, Group, Individual Preference and Written Barriers to Learning: Vision Impairment (Wears glasses) Stage of change r/t lifestyle modifications:: Preparation Gave educational material for:: Treating Heart Disease, How The Heart Works, What it means to have Heart Disease, How Coronary Artery Disease is Diagnosed, Heart Procedures, What Heart Medications Do, Risk Factors & Modifications, Living an Active Life, Nutrition, Emotions & Heart Disease, Stress Management & Relaxation and Sleep Disorders & Heart Disease Education/Goals Cardiac Rehabilitation Goals Personal Goals: Initial Assessment: Improve management of stress and emotions, Improve muscle strength and endurance, Improve diet and eating habits (eat healthier) and Control risk factors (learn risk factor modification) Scale for measuring improvement of personal goals Diagnosis & Disease Process Outcomes/Goals: Pt IDs own risk factors & lifestyle modifications by Session 10, Verbalizes symptoms of angina & response by session 3. and Pt independently manages Plan/Interventions: Assist Pt to ID & engage in lifestyle modification to reduce CVD risk, Instruct on individual risk factors, Review symptoms of angina & emergency actions and Review secondary diagnosis & identify educational needs. Safety Referral to Physical Therapy: No Referral to [facility] Case Management: No Fall Risk Assessed:: Yes Assistive Devices:: None Exercise - Initial Assessment Visit Date of Eval: 11/09/23 (INITIAL EVAL) Mets: Pre-: >3 METS for 30 minutes by discharge, >5 METS for 30 minutes by discharge and >7 METS for 30 minutes by discharge Physician Prescribed Exercise Modalities: Treadmill, Schwinn Airdyne AD-7, SciFit Stepper and SciFit Lateral Developmental Mathematics Professor Frequency: 3x/week for 12 weeks [36 sessions] Intensity: 60-80% of age predicted maximum heart rate reserve Duration: 30 - 45 minutes METs - Progression 0.5-1.0 weekly:: 3 Resting Blood Pressure: 128/74 EKG Type: sinus rhythm t wave abnormalities, post op afib Current Physical Activity or Exercising minutes: walking Outcomes & Goals Goals:: Verbalizes understanding of THR, RPE & goal METS by session 6, Documents in home exercise log/reports 30 min aerobic 5 day/wk by DC and Demonstrates accurate pulse taking by DC Intervention & Plan Exercise Program Goals: Instruct on personal THR & RPE, Instruct on MET level & personal MET goal, Show patient to take own pulse /validate performance until accurate and Instruct on home exercise Physical Activity Home Exercise Physical Activity - Home Exercise: Safe Exercise, Warm-up, Self-monitoring, Cool-Down, Home Exercise > 30 min Daily and Sitting Time <3 hours/daily Outcomes & Goals Outcomes/Goals: Demonstrates correct Warm-up/exercise Cool-Down (S3) if = 2.5 METs, Verbalizes symptoms of exercise intolerance by Session 3 (S3), Demonstrate safe equipment use (S3) & follows exercise prescrition (6) and Other: See below Intervention & Plan Plan/Intervention: Instruct warm-up & cool-down if exercising at > 2 METs, Instruct on symptoms of exercise intolerance & actions to take, Instruct & monitor on saf, Assess intial functional capacity & safety risk and Other See below Nutrition - Initial Assessment Program Goals Nutrition Program Goals Patient has diagnosis of Hyperlipidemia (ICD E78)?: Yes Visit Date of Eval: 11/09/23 (initial eval) Cholesterol/Lipids (Other Core Measures) Determine presence & major risk factors that modify LDL goal: Age men > 45 years; women >/= 55 years Outcomes/Goals: Pt IDs own risk factors & lifestyle modifications by Session 10, Verbalizes symptoms of angina & response by session 3. and Pt independently manages Intervention/Plan: Advocate for lipid panel cholesterol medication if applicable, Instruct on personal lipid levels & lipid goals/NCEP guidelines and Instruct on cholesterol Referral to dietitian:: No Diabetes (Other Core Measures) Diabetes Type: Not Applicable Weight Mgt (Other Care) Height: 5 ft 8 in Weight:: 164 lb BMI: 24.9 Diagnosis Overweight/Obesity BMI> 30% ICD-10 E66: No Diagnosis High BMI/Morbid Obesity BMI> 35% ICD-10 Z68: No Outcomes/Goals: Pt sets, maintains & shows weight loss goal & trend during rehab and Other additional outcomes/goals Intervention/Plan: Instruct on ideal BMI & set weight loss goal w/patient, Assist pt to ID & incorporate diet changes for weight loss by S9, Refer to Structured Weight Loss program as appropriate, Encourage goal of using 250-300dcal per session for weight loss and Other additional plan/interventions Healthy Eating Habits Will attend diet classes:: Yes Outcomes/Goals:: Consume diet rich in vegs,fruits,whole grain/high fiber,fish,lean meat, Limit sat/trans fats,cholesterol & added salts & sugars and Other additional outcome/goals: Intervention/Plan:: Assess current eating habits and Other Additional plan/interventions Education Gave educational materials for:: Signs & symptoms of hypoglycemia, Signs & symptoms of hyperglycemia, Relate diabetes to coronary artery disease and Healthy eating Core - Initial Assessment Visit Date of Eval: 11/09/23 (initial eval) Medication Compliance Preventative Medication(s):: Aspirin, Statin/lipid and Beta florecita H/O mental health issues: depression, anxiety, or addiction?: Yes Doesn?t believe in the benefits of treatment?: No Believes medications are unnecessary or harmful?: No Has a concern about medication side effects?: No Expresses concern over the cost of medications?: No Outcomes/Goals: Verbalizes medications,desired effect & common side effects @ DC, Pt self-reports following medication regimen and Keeps card in wallet w/medications listed by DC Interventions/plans: Instruct on medication effects & side effects, Review medication list w/patient every two weeks and Instruct importance of taking meds as ordered & assist problem solving Tobacco Use Tobacco Use: Non-smoker How long ago did you quit using tobacco products?: Greater than or equal to 6 months ago Years Smokin Do you use smokeless tobacco?: No Outcomes/Goals: Smoking cessation achieved or maintained by discharge and Identify aids/strategies for achieving smoking cessation by session 6 Interventions/plan: Instruct on effects of smoking & provide smoking cessation resource, Assist pt to set quit date & provide encouragement, Assist pt to develop strategies to achieve/maintain quit date and Assist pt w/nicotine replacement & medication for cessation success Hypertension Hypertension Diagnosis:: Not Applicable [place] [employer] Hypertension Guidelines Tobacco Cessation Referral Smoking Cessation Referral:: No Individual Education/Counseling:: No Education Schedule Given:: Yes Psychosocial - Initial Assess VIsit Date of Eval: 11/09/23 (initial eval) History of previous Mental disease:: No History of Emotional Disorders: Anxious Self-reported stressors: Recent Illness Target Goals Target Goals Psychosocial Test Tool Used:: PHQ-9 Questionnaire phq-9 Severity See PHQ-9 Score: 3 Referral to Behavioral Health PS - Interventions: Yes: Attend Stress Management Classes and No: Referral to Behavioral Health if PHQ-9 score >9:, No: Referral to [facility] and No: Referral to Physician if PHQ-9 if score is 5-9: Outcomes/Goals: See list Psychosocial Outcomes/Goals:: ID's personal stressors & 2 strategies to manage stress by discharge and Other Additional outcome/goals: Intervention/Plan: See List Interventions/Plan:: Assess stressors,coping strategies & signs of derpression on admission, Instruct/assist pt to develop coping & personal stress Mgt strategies, Refer to Behavioral Health if appropriate, Refer to Physician if appropriate, Instruct patient to recognize signs & symptoms of depression, Instruct patient to recog and Other additional plan/intervention Patient Health Questionnaire PHQ-9 Screening Initial Assessment: 1. Little interest or pleasure in doing things: Several days 2. Feeling down, depressed, or hopeless: Not at all 3. Trouble falling or staying asleep, or sleeping too much: Several days 4. Feeling tired or having little energy: Several days 5. Poor appetite or overeating: Not at all 6. Feeling bad about yourself -- or that you are a failure or have let yourself or your family down: Not at all 7. Trouble concentrating on things, such as reading the newspaper or watching television: Not at all 8. Moving or speaking so slowly that other people could have noticed. Or the opposite - being so fidgety or restless that you have been moving around a lot more than usual: Not at all 9. Thoughts that you would be better off , or of hurting yourself in some way: Not at all How difficult have these problems made it for you to do your work, take care of things at home, or get along with other people?: Somewhat difficult Total Score: 3 PAUL-Q SV Test Statements CAD is a disease of the arteries in the heart: False Examples of risk factors for heart disease: True Angina is chest pain or discomfort: True The benefits of resistance training include: True Eating more meat and dairy products: False Anti-platelet medications such as aspirin are important: True The only effective way to manage stress: False An exercise warm-up slowly increases heart rate: True Prepared, processed foods usually have high sodium: True Depression is common after a heart attack: True The statin medications lower cholesterol: True To control blood pressure, lower the amount of sodium: True If someone gets chest discomfort during walking: False Transfats are partially hydrogenated vegetable oils: True Sleep apnea that is not treated increases the risk: I Don't Know To control cholesterol, one should become a vegetarian: False Someone knows if he/she is exercising at the right level: True Diabetes cannot be prevented with exercise & health eating: False Stress is a large risk for heart attack: True A diet that can help lower blood pressure is rich in: True Total Score Total Correct Responses: 19 Self-Efficacy 6-Item Scale Initial Assessment: We would like to know how confident you are in doing certain activities. Please select your confidence level for: Fatigue Select Number: 5 Physical Discomfort or Pain Select Number: 5 Emotional Distress Select Number: 8 Other Symptoms or Health Problems Select Number: 5 Different Tasks and Activities Select Number: 7 Medication Select Number: 8 Total Score:: 6 Nutrition Survey Nutrition Survey Instructions Scoring Instructions Nutrition Survey Initial: Have you lost >10 lbs over the past 2 months without trying?: Yes Are you following a special diet at home for diabetes, low fat, or low salt?: No Are you interested in meeting with a dietitian for help understanding your diet?: No Do you eat less than 3 meals a day?: Yes Do you eat fatty meats (euceda, sausage, ribs, etc), fried foods, desserts, large amounts of salad dressings, margarine, butter, or cheese most days?: No Do you have food allergies? [Enter types in comment field]: No Do you eat in restaurants more than 3 times a week?: No Do you season food with salt, seasoning salt, or garlic salt?: Yes Do you used canned, boxed, frozen meals, or soups, seasoning packets?: Yes Total Score:: 4 Exercise - 30-day Assessment Physician Prescribed Exercise Modalities: Treadmill, Schwinn Airdyne AD-7, SciFit Stepper and SciFit Lateral [place] Exercise - 60-day Assessment Physician Prescribed Exercise Modalities: Treadmill, Schwinn Airdyne AD-7, SciFit Stepper and SciFit Lateral [place] Exercise - 90-day Assessment Physician Prescribed Exercise Modalities: Treadmill, Schwinn Airdyne AD-7, SciFit Stepper and SciFit Lateral Developmental Mathematics Professor Exercise - Final/Discharge Physician Prescribed Exercise Modalities: Treadmill, Schwinn Airdyne AD-7, SciFit Stepper and SciFit Lateral Developmental Mathematics Professor Frequency: 3x/week for 12 weeks [36 sessions] Intensity: 60-80% of age predicted maximum heart rate reserve METs - Progression 0.5-1.0 weekly:: 3 Nutrition - 30-Day Assessment Weight Mgt (Other Care) Height: 5 ft 8 in Weight:: 164 lb BMI: 24.9 Nutrition - 60-Day Assessment Weight Mgt (Other Care) Height: 5 ft 8 in Weight:: 164 lb BMI: 24.9 Core - 30-Day Assessment Tobacco Use Years Smokin Psychosocial - 30-Day Assess Target Goals Target Goals Referral to Behavioral Health PS - Interventions: Yes: Attend Stress Management Classes and No: Referral to Behavioral Health if PHQ-9 score >9:, No: Referral to [facility] and No: Referral to Physician if PHQ-9 if score is 5-9: Psychosocial - 60-Day Assess Target Goals Target Goals Referral to Behavioral Health PS - Interventions: Yes: Attend Stress Management Classes and No: Referral to Behavioral Health if PHQ-9 score >9:, No: Referral to [facility] and No: Referral to Physician if PHQ-9 if score is 5-9: Psychosocial - 90-Day Assess Target Goals Target Goals Referral to Behavioral Health PS - Interventions: Yes: Attend Stress Management Classes and No: Referral to Behavioral Health if PHQ-9 score >9:, No: Referral to [facility] and No: Referral to Physician if PHQ-9 if score is 5-9: Psychosocial - Final Assessmen Target Goals Target Goals Psychosocial Test phq-9 Severity See PHQ-9 Score: 3 Referral to Behavioral Health PS - Interventions: Yes: Attend Stress Management Classes and No: Referral to Behavioral Health if PHQ-9 score >9:, No: Referral to [facility] and No: Referral to Physician if PHQ-9 if score is 5-9: Nutrition - 90-Day Assessment Weight Mgt (Other Care) Height: 5 ft 8 in Weight:: 164 lb BMI: 24.9 Nutrition - Final Assessment Program Goals Patient has diagnosis of Hyperlipidemia (ICD E78)?: Yes Weight Mgt (Other Care) Height: 5 ft 8 in Weight:: 164 lb BMI: 24.9
--- NOTE | 2023-11-09 14:05 | PCM.CR.HP2 ---
CR - History & Physical General Arrival date:: 11/09/23 (initial eval) Arrival time:: 14:05 Date of Referral:: 10/26/23 Date of CR Evaluation:: 11/09/23 Referring Physician: Dr. Candido Askew Primary Diagnosis: CABG History of Present Cardiac Event Onset Date Current stable Angina Pectoris:: No Acute Myocardial Infarction within 12 months:: No Coronary Artery Bypass Graft:: Yes Vessel: RICHARDS to LAD grafts to diagonal PDA of RCA and LCx Heart valve replacement or repair:: No PTCA or coronary stenting:: No Heart or Heart-Lung Transplant:: No Heart Failure EF <35%:: No Medications Ambulatory Orders ?Medication ?Instructions ?Recorded atenolol 50 mg tablet 25 mg PO BID BLOOD PRESSURE 09/12/23 ezetimibe 10 mg tablet 10 mg PO DAILY CHOLESTEROL 09/12/23 aspirin 81 mg tablet,delayed 81 mg PO BREAKFAST #90 tabs 09/14/23 release atorvastatin 40 mg tablet 40 mg PO QHS #90 tabs 09/14/23 amiodarone 200 mg tablet 200 mg PO DAILY 10/26/23 benzonatate 100 mg capsule 100 mg PO TID PRN cough 10/26/23 pseudoephedrine-guaifenesin ER 60 1 tab PO BID PRN cough 10/26/23 mg-600 mg tablet,extend release 12hr (Mucinex D) Allergies Allergies No Known Allergies Allergy (Verified 10/26/23 13:25) Sleep Disorder Evaluation Hx of Sleep Apnea: No Do you snore loudly (louder than talking or can be heard through closed doors)?: Yes Do you often feel tired/ fatigued/ sleepy during daytime?: No Has anyone observed you stop breathing during sleep?: No History of Hypertension (for STOP score): Yes STOP Results: Positive Advanced Directives Advanced Directives Power of Teasel Setter: No Living Will: No Advance Directives Information Provided: Yes Advance Directives on File: No DNR Order?:: No Past Medical History Covid-19 Screening Physicial Symptoms Fever: No Unexplained muscle aches: No Current respiratory symptoms: No Upper respiratory infections symptoms: No Gastro-intestinal symptoms: No Hsy-Jhxi-Wtcyli symptoms: No Other Clinical Concerns Has tested positive for COVID-19 in last 30 days: No Exposure Risk Had contact w/person w/symptoms or Covid-19 (+) last 14 days: No Has High Risk Exposures ID'd by Health dept/Inf Control team: No Pertinent Comorbidities 65 years or older:: Yes Lives in Assisted Living facility:: No Has a chronic lung disease or moderate to severe asthma:: No Has a serious heart condition:: Yes Immunocompromised:: No Severely obese (Body Mass Index of 40 or higher):: No Diabetic:: No Has chronic kidney disease undergoing dialysis:: No Has liver disease:: No Past Medical Illness Past Medical History (Updated 10/26/23 @ 13:52 by Clarence Levy VOCATIONAL REHABILITATION SUPERVISOR, VOCATIONAL REHABILITATION SUPERVISOR-C) Melanoma C43.9 2020, on scalp Triple vessel coronary artery disease I25.10 Heart disease I51.9 High cholesterol E78.00 Past Surgical History Past Surgical History (Updated 10/28/23 @ 13:45 by Clarence Levy VOCATIONAL REHABILITATION SUPERVISOR, VOCATIONAL REHABILITATION SUPERVISOR-C) History of tonsillectomy Z90.89 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 Chavis; Family History Summary Family History Father Heart disease Hx of CABG Social History Smoking History Smoking Status: Former smoker Years Smokin Packs Smoked per Day: 0.5 Hx Tobacco Use: No Hx Smoking Exposure: Yes Alcohol Use Alcohol Usage: No Substance Abuse Hx Substance Use: No Occupation Occupation (List type of work in comments):: Retired Hobbies, Recreation, Social Activities Hobbies: Reading, Walking and Exercise Recreational Activities: I am able to engage in a few activities Social Environment Current Living Arrangements Living Environment:: Spouse Children How many children do you have?: 0 Do any of your children live nearby?: No (N/A) Safety Do you feel safe in your surroundings?: Yes Assistance Do you need any assistance at home?: none Review of Systems Review of Systems Hints Review of Present Symptoms: Reports Operative Discomfort (when coughing) Pain Is Patient Pain Free?: No Pain Location: chest (INCISIONAL, ONLY WHEN COUGHING) Pain Level: 3/10 Risk Factor Assessment Vital Signs Pulse Ox: 100 Blood Pressure: 128/74 Pulse Pulse Rate: 60 Hypertension On medication(s)?: ATENOLOL (pt states heart rate) Blood Pressure Sitting - Left Arm: 128/74 Stress Stress: Recent Diabetes Nutrition Referral for Diabetes: No Obesity Height: 5 ft 8 in Weight:: 164 lb Weight in Pounds: 164.0 lbs Body Mass Index (BMI): 24.9 Nutritional Referral for Obesity: No Physical Inactivity Physical Inactivity: Reg Exercise 30 min/day (1-1.5 MILES PER DAY, THROUGH OUT THE DAY) Risk Stratification Risk Guidelines: Lowest Risk: Risk Factor for Smoking, Moderate Risk: Risk Factor for Diabetes, Risk Factor for Obesity, Risk Factor for Hypertension, Risk Factor for Sedentary Lifestyle and Risk Factor for Depression and Highest Risk: Risk Factor for Dyslipidemia For Smoking Smoking Risk Guidelines For Dyslipidemia Dyslipidemia Risk Guidelines For Diabetes Mellitus Diabetes Risk Guidelines For Obesity/Overweight Obesity/Overweight Risk Guidelines For Hypertension Hypertension Risk Guidelines For Sedentary Lifestyle Sedentary Lifestyle Risk Guidelines For Depression Depression Risk Guidelines Family History Family History Father Heart disease Hx of CABG Motivation Motivation to Participate On a scale of 1 to 10, how prepared are you to commit to attending program?: 8 What do you see as barriers to successfully being able to complete the program?: COUGHING What do you see as the benefits of succesfully completing the program? In other words, what do you hope to get out of participating in the program?: HOPING TO INCREASE STRENGTH Are there issues you are dealing with that will interfere with completing the program?: CANT DRIVE YET, ONLY 6 WEEKS POST OP Do you have a spouse or signficant other, family or friends who will help support you to complete the program?: YES
[2023-11-09 15:17] VITALS: BP 128/74
[2023-11-09 15:19] VITALS: BMI 24.9
[2023-11-09 15:26] VITALS: BP 128/74; PULSE 60; O2SAT 100; BMI 24.9
== END | disposition home or self-care (01) ==
LOC: CR 13:44
PROVIDERS: PCP Internal Medicine; Referring Provider Internal Medicine Cardiovascular Disease; Visit Provider Internal Medicine Cardiovascular Disease
DX: I97.89 Other postprocedural complications and disorders of the circulatory system, not elsewhere classified (principal); I48.91 Unspecified atrial fibrillation; E78.2 Mixed hyperlipidemia; Z95.1 Presence of aortocoronary bypass graft

== ENCOUNTER 2023-12-12 13:00 | Outpatient (RCR) | payer MEDICARE, BC, SELFPAY ==
[2023-11-09 15:19] VITALS: BMI 24.9
== END 2023-12-12 23:59 ==
LOC: CR 13:00
PROVIDERS: PCP Internal Medicine; Referring Provider Internal Medicine Cardiovascular Disease; Visit Provider Internal Medicine Cardiovascular Disease
DX: I97.89 Other postprocedural complications and disorders of the circulatory system, not elsewhere classified (principal); I48.91 Unspecified atrial fibrillation; E78.2 Mixed hyperlipidemia; Z95.1 Presence of aortocoronary bypass graft
CPT/HCPCS: 93798

== ENCOUNTER 2024-01-11 13:00 | Outpatient (RCR) | payer MEDICARE, BC, SELFPAY ==
[2023-11-09 15:19] VITALS: BMI 24.9
--- NOTE | 2024-01-09 07:06 | PCM.CR.ITP ---
Exercise - Initial Assessment Physician Prescribed Exercise Modalities: Modesto Sotone AD-7, SciFit Stepper and SciFit Lateral Maple Sugar Maker Nutrition - Initial Assessment Weight Mgt (Other Care) Height: 5 ft 8 in Weight:: 162 lb 8 oz BMI: 24.7 Psychosocial - Initial Assess Target Goals Target Goals Referral to Behavioral Health PS - Interventions: Yes: Attend Stress Management Classes Patient Health Questionnaire PHQ-9 Screening 60-Day Re-eval Assessment: 1. Little interest or pleasure in doing things: Several days 2. Feeling down, depressed, or hopeless: Not at all 3. Trouble falling or staying asleep, or sleeping too much: Several days 4. Feeling tired or having little energy: Several days 5. Poor appetite or overeating: Not at all 6. Feeling bad about yourself -- or that you are a failure or have let yourself or your family down: Not at all 7. Trouble concentrating on things, such as reading the newspaper or watching television: Not at all 8. Moving or speaking so slowly that other people could have noticed. Or the opposite - being so fidgety or restless that you have been moving around a lot more than usual: Not at all 9. Thoughts that you would be better off , or of hurting yourself in some way: Not at all How difficult have these problems made it for you to do your work, take care of things at home, or get along with other people?: Somewhat difficult Total Score: 3 Self-Efficacy 6-Item Scale 60-Day Re-eval Assessment: We would like to know how confident you are in doing certain activities. Please select your confidence level for: Fatigue Select Number: 5 Physical Discomfort or Pain Select Number: 5 Emotional Distress Select Number: 8 Other Symptoms or Health Problems Select Number: 5 Different Tasks and Activities Select Number: 7 Medication Select Number: 8 Total Score:: 6 Nutrition Survey Nutrition Survey Instructions Scoring Instructions Exercise - 30-day Assessment Physician Prescribed Exercise Modalities: Michellen Charlesne AD-7, SciFit Stepper and SciFit Lateral [place] Exercise - 60-day Assessment Visit Date of Eval: 01/09/24 Session #:: 21 Physician Prescribed Exercise Modalities: Schwinn dyne AD-7, SciFit Stepper and SciFit Lateral Maple Sugar Maker Frequency: 3x/week for 12 weeks [36 sessions] Intensity: 60-80% of age predicted maximum heart rate reserve Duration: 30 - 45 minutes Current METSs:: 5.3 Target Heart Rate:: 91-113 Current RPE:: 12-15 Maximum Excercise HR:: 87 Resting Blood Pressure: 112/68 Maximum Exercise Blood Pressure: 130/78 EKG Type: SR rare PVC/PAC Outcomes & Goals Goals:: Verbalizes understanding of THR, RPE & goal METS by session 6, Documents in home exercise log/reports 30 min aerobic 5 day/wk by DC, Demonstrates accurate pulse taking by DC and Other additional outcome/goals: see below Intervention & Plan Exercise Program Goals: Instruct on personal THR & RPE, Instruct on MET level & personal MET goal, Show patient to take own pulse /validate performance until accurate, Instruct on home exercise and Other additional plan/int 30-day Reassessments 30 day Reassessments:: Progressing Reassessment Notes & Comments:: THR explained in exercise class Physical Activity Home Exercise Physical Activity - Home Exercise: Safe Exercise, Warm-up, Self-monitoring, Cool-Down, Home Exercise > 30 min Daily and Sitting Time <3 hours/daily Outcomes & Goals Outcomes/Goals: Demonstrates correct Warm-up/exercise Cool-Down (S3) if = 2.5 METs, Verbalizes symptoms of exercise intolerance by Session 3 (S3), Demonstrate safe equipment use (S3) & follows exercise prescrition (6) and Other: See below Intervention & Plan Plan/Intervention: Instruct warm-up & cool-down if exercising at > 2 METs, Instruct on symptoms of exercise intolerance & actions to take, Instruct & monitor on saf, Assess intial functional capacity & safety risk and Other See below 30-day Reassessments 30 day Reassessments:: Progressing Reassessment Notes & Comments:: cool down explained. Exercise - 90-day Assessment Physician Prescribed Exercise Modalities: Modesto Yarbrough AD-7, SciFit Stepper and SciFit Lateral Maple Sugar Maker Exercise - Final/Discharge Physician Prescribed Exercise Modalities: Modesto Sotone AD-7, SciFit Stepper and SciFit Lateral [place] Nutrition - 30-Day Assessment Weight Mgt (Other Care) Height: 5 ft 8 in Weight:: 162 lb 8 oz BMI: 24.7 Nutrition - 60-Day Assessment Program Goals Nutrition Program Goals Patient has diagnosis of Hyperlipidemia (ICD E78)?: Yes Visit Date of Eval: 01/09/24 Session #:: 21 Cholesterol/Lipids (Other Core Measures) Determine presence & major risk factors that modify LDL goal: Hypertension or hypertensive medication, Low HDL cholesterol <40 mg/dL*, Family history of premature CHD in Male < 55 years: female <65 yearsFa and Age men > 45 years; women >/= 55 years Outcomes/Goals: Pt IDs own risk factors & lifestyle modifications by Session 10, Verbalizes symptoms of angina & response by session 3., Pt independently manages and Other Additional Outcomes/Goals: Intervention/Plan: Advocate for lipid panel cholesterol medication if applicable, Instruct on personal lipid levels & lipid goals/NCEP guidelines, Instruct on cholesterol and Other additional plan/int 30-day Reassessments:: Progressing Reassessment Notes & Comments:: risk factors reviewed Diabetes (Other Core Measures) Diabetes Type: Not Applicable Weight Mgt (Other Care) Height: 5 ft 8 in Weight:: 162 lb 8 oz BMI: 24.7 Diagnosis Overweight/Obesity BMI> 30% ICD-10 E66: No Diagnosis High BMI/Morbid Obesity BMI> 35% ICD-10 Z68: No Outcomes/Goals: Pt sets, maintains & shows weight loss goal & trend during rehab and Other additional outcomes/goals Intervention/Plan: Instruct on ideal BMI & set weight loss goal w/patient, Assist pt to ID & incorporate diet changes for weight loss by S9, Refer to Structured Weight Loss program as appropriate, Encourage goal of using 250-300dcal per session for weight loss and Other additional plan/interventions 30 day Reassessments:: Met Reassessment Notes & Comments:: pt is at a healthy weight Healthy Eating Habits Will attend diet classes:: Yes Outcomes/Goals:: Consume diet rich in vegs,fruits,whole grain/high fiber,fish,lean meat, Limit sat/trans fats,cholesterol & added salts & sugars and Other additional outcome/goals: Intervention/Plan:: Assess current eating habits and Other Additional plan/interventions 30-day Reassessments:: Progressing Reassessment Notes & Comments:: Pt to attend nutrition class Education Gave educational materials for:: Signs & symptoms of hypoglycemia, Signs & symptoms of hyperglycemia, Relate diabetes to coronary artery disease and Healthy eating Core - 60-Day Assessment Visit Date of Eval: 01/09/24 Session #:: 21 Medication Compliance Preventative Medication(s):: Aspirin, Statin/lipid and Beta florecita H/O mental health issues: depression, anxiety, or addiction?: Yes Doesn?t believe in the benefits of treatment?: No Believes medications are unnecessary or harmful?: No Has a concern about medication side effects?: No Expresses concern over the cost of medications?: No Outcomes/Goals: Verbalizes medications,desired effect & common side effects @ DC, Pt self-reports following medication regimen, Keeps card in wallet w/medications listed by DC and Other additional outcome/goals: Interventions/plans: Instruct on medication effects & side effects, Review medication list w/patient every two weeks, Instruct importance of taking meds as ordered & assist problem solving and Other additional 30-day Reassessments:: Met Reassessment Notes & Comments:: pt taking meds as prescribed Tobacco Use Tobacco Use: Non-smoker Hypertension Hypertension Diagnosis:: Not Applicable Resting Blood Pressure:: 112/68 [place] [employer] Hypertension Guidelines Peak Exercise Blood Pressure:: 130/78 Outcomes/Goals: Able to verbalize/achieve optimal blood pressure <130/80, Incorporates diet changes & exercise for blood pressure control by DC and Other additional outcomes/goals Interventions/plan: Instruct on optimal blood pressure, hypertension & medications, Instruct on effects of sodium, alcohol, stress, exercise &hypertension and Other additional plan/interventions 30 day Reassessments:: Met Reassessment Notes & Comments:: Bp's running within AHA normal limits Tobacco Cessation Referral Smoking Cessation Referral:: No Individual Education/Counseling:: No Education Schedule Given:: Yes Psychosocial - 30-Day Assess Target Goals Target Goals Referral to Behavioral Health PS - Interventions: Yes: Attend Stress Management Classes Outcomes/Goals: See list Psychosocial Outcomes/Goals:: ID's personal stressors & 2 strategies to manage stress by discharge and Other Additional outcome/goals: Psychosocial - 60-Day Assess VIsit Date of Eval: 01/09/24 Session #:: 21 History of Emotional Disorders: Anxious Target Goals Target Goals Psychosocial Test Tool Used:: [employer] Power QOL Cardiac and PHQ-9 Questionnaire phq-9 Severity Referral to Behavioral Health PS - Interventions: Yes: Attend Stress Management Classes Outcomes/Goals: See list Psychosocial Outcomes/Goals:: ID's personal stressors & 2 strategies to manage stress by discharge and Other Additional outcome/goals: Intervention/Plan: See List Interventions/Plan:: Assess stressors,coping strategies & signs of derpression on admission, Instruct/assist pt to develop coping & personal stress Mgt strategies, Refer to Behavioral Health if appropriate, Refer to Physician if appropriate, Instruct patient to recognize signs & symptoms of depression, Instruct patient to recog and Other additional plan/intervention 30-day Reassessments: 30 day Reassessments:: Met Psychosocial - 90-Day Assess Target Goals Target Goals Referral to Behavioral Health PS - Interventions: Yes: Attend Stress Management Classes Psychosocial - Final Assessmen Target Goals Target Goals Referral to Behavioral Health PS - Interventions: Yes: Attend Stress Management Classes Nutrition - 90-Day Assessment Weight Mgt (Other Care) Height: 5 ft 8 in Weight:: 162 lb 8 oz BMI: 24.7 Nutrition - Final Assessment Weight Mgt (Other Care) Height: 5 ft 8 in Weight:: 162 lb 8 oz BMI: 24.7
[2024-01-09 07:15] VITALS: BP 112/68; BMI 24.7
== END 2024-01-12 23:59 ==
LOC: CR 13:00
PROVIDERS: PCP Internal Medicine; Referring Provider Internal Medicine Cardiovascular Disease; Visit Provider Internal Medicine Cardiovascular Disease
DX: I97.89 Other postprocedural complications and disorders of the circulatory system, not elsewhere classified (principal); I48.91 Unspecified atrial fibrillation; E78.2 Mixed hyperlipidemia; Z95.1 Presence of aortocoronary bypass graft
CPT/HCPCS: 93798

== ENCOUNTER 2024-02-06 13:00 | Outpatient (RCR) | payer MEDICARE, BC, SELFPAY ==
[2024-01-09 07:15] VITALS: BMI 24.7
[2024-01-13 00:41] VITALS: BP 112/68
== END 2024-02-11 23:59 ==
LOC: CR 13:00
PROVIDERS: PCP Internal Medicine; Referring Provider Internal Medicine Cardiovascular Disease; Visit Provider Internal Medicine Cardiovascular Disease
DX: I97.89 Other postprocedural complications and disorders of the circulatory system, not elsewhere classified (principal); I48.91 Unspecified atrial fibrillation; E78.2 Mixed hyperlipidemia; Z95.1 Presence of aortocoronary bypass graft
CPT/HCPCS: 93798

== ENCOUNTER → 2024-03-23 | Outpatient (CLI) | payer MEDICARE, BC, SELFPAY ==
[2024-01-09 07:15] VITALS: BMI 24.7
[2024-03-23 08:54] LABS: AST(SGOT) 46 U/L (15-37); Alanine Aminotransfer ALT/SGPT 88 U/L (16-61); Albumin, Serum 3.8 g/dL (3.2-5.0); Alkaline Phosphatase 84 U/L (45-117); Anion Gap 1 (5-15); BUN 22 mg/dL (7-18); BUN/Creat Ratio 20.4 RATIO (10-20); Bilirubin, Direct 0.26 mg/dL (0.00-0.30); Chloride 109 mmol/L (98-107); Cholesterol 135 mg/dL (200); Creatinine, Serum 1.08 mg/dL (0.70-1.30); EST Glomerular Filtration Rate 72 mL/min (>60); Est Glom Filt Rate - Afr Amer 87 mL/min (>60); Globulin 3.4 g/dL (2.2-4.2); Glucose 94 mg/dL (74-106); High Density Lipoprotein 69 mg/dL; Potassium 4.6 mmol/L (3.5-5.1); Protein, Total 7.2 g/dL (6.4-8.2); Sodium Level 140 mmol/L (136-145); Triglycerides 47 mg/dL; Very Low Density Lipoprotein 9 mg/dL (5-40)
== END | disposition home or self-care (01) ==
LOC: LAB 08:06
PROVIDERS: PCP Internal Medicine; Referring Provider Nurse Practitioner Family; Visit Provider Nurse Practitioner Family
DX: R09.89 Other specified symptoms and signs involving the circulatory and respiratory systems (principal); R60.0 Localized edema; I25.10 Atherosclerotic heart disease of native coronary artery without angina pectoris; Z95.1 Presence of aortocoronary bypass graft; E78.2 Mixed hyperlipidemia
CPT/HCPCS: 36415; 80048; 80061; 80076

== ENCOUNTER → 2024-07-06 | Outpatient (CLI) | payer MEDICARE, BC, SELFPAY ==
[2024-01-09 07:15] VITALS: BMI 24.7
[2024-07-06 15:54] LABS: AST(SGOT) 44 U/L (<=37); Alanine Aminotransfer ALT/SGPT 44 U/L (<=46); Albumin, Serum 4.1 g/dL (3.4-4.8); Alkaline Phosphatase 72 U/L (40-129); Bilirubin, Direct 0.28 mg/dL (0.00-0.30); Globulin 2.7 g/dL (2.2-4.2); Protein, Total 6.8 g/dL (5.9-8.4); Total Bilirubin 0.56 mg/dL (0.00-1.30)
== END | disposition home or self-care (01) ==
LOC: LAB 14:36
PROVIDERS: PCP Internal Medicine; Referring Provider Nurse Practitioner Family; Visit Provider Nurse Practitioner Family
DX: E78.2 Mixed hyperlipidemia (principal); R74.8 Abnormal levels of other serum enzymes; Z95.1 Presence of aortocoronary bypass graft
CPT/HCPCS: 36415; 80076

== ENCOUNTER → 2024-12-11 | Outpatient (CLI) | payer MEDICARE, BC, SELFPAY ==
[2024-01-09 07:15] VITALS: BMI 24.7
--- OUTSIDE RECORDS SUMMARY | 2024-07-17 12:52 | XMS RPT_ITS ---
Author Name Auto Generated Organization OHIP Care Team Providers Care Collaborative Teacher Name Role Phone GORGE CLARK Attending Unavailable GORGE CLARK Primary Care Unavailable PROBLEMS DATE TYPE CONDITION / CODE ATTENDING STATUS 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) GORGE CLARK Active [facility] [place] 07/17/2024 Active Encounter for immunization / Z23(ICD-10) GORGE CLARK Active [facility] 07/17/2024 Active Encounter for sc reening examination for other mental health and behavioral disorders / Z13.39(ICD-10) GORGE CLARK Active [facility] [place] 07/17/2024 Active Screening for de pression / Z13.31(ICD-10) GORGE CLARK Active [facility] [place] 07/17/2024 Active Screening for co michelle cancer / Z12.11(ICD-10) GORGE CLARK Active [facility] [place] 07/17/2024 Active Acute non-recurr ent frontal sinusitis / J01.10(ICD-10) GORGE CLARK Active [facility] [place] 07/17/2024 Active Synovitis and tenosynovitis / M65.90(ICD-10) GORGE CLARK Active [facility] [place] 07/17/2024 Active Mixed hyperlipid emia / E78.2(ICD-10) GORGE CLARK Active [facility] PROCEDURES No Procedure Records Found RESULTS HEMOCCULT STL QL IA Collected: 07/18/2024 8:[address] atus: F Source: [facility] Order Comment: Specimen Type : STOOL SPECIMEN Ordering Facility: [facility] Address: [address] [place] [address] TYPE CODE TESTS RESULT OUT OF RANGE REFERENCE UNITS LAB 42827-1(LOINC) Hemoccult Stl Ql IA Negative Negative Performed By: #### [id number] # ### [facility] CLIA [id number] [address] [place] [address] [place] [address] [place] PRO[place]ESS Observed: 07/17/2024 1:20 PM Status: COMPLETED Source: [facility] HNO ID: [id number] Author: GORGE CLARK MD Service: ? Author Type: Physician Type: Progress Notes Filed: 07/17/2024 14:17 Note Text: This note was created using eelusionter. Subjective Verenice Ahn is a 69 year old male. HISTORY Verenice Ahn is a 69 year old gentleman here for Medicare Annual Wellness Visit, yearly exam and follow up appointment. Verenice is a 69-year-old male with a history of CAD, presenting for a Medicare Annual Wellness Visit. Verenice underwent a quadruple bypass surgery on 09/28/2023 and was hospitalized for one week. Postoperatively, he experienced significant sinus drainage and a persistent cough, which he believes prolonged his hospital stay. He reports concerns about potential dehiscence due to the intensity of the cough, which caused pain, especially around the areas where tubes and lines were inserted. He also reports difficulty sleeping during his hospital stay due to noise and frequent interruptions for vital signs and blood draws. Approximately two weeks ago, Verenice experienced symptoms suggestive of a sinus infection, including thick, yellow nasal discharge, frontal sinus pain, and chills. He managed these symptoms with cetirizine and reports improvement without the use of antibiotics. He continues to experience mild congestion. Verenice has resumed walking 6-7 days a week but notes a decrease in strength due to postoperative restrictions on lifting more than 10 pounds for three months. He reports a weight loss of approximately 14-15 pounds during his hospital stay, with a current weight of 165-166 pounds, down from 172 pounds preoperatively. He has not yet resumed weightlifting, as advised by his healthcare provider to wait a year for full healing. He completed 36 sessions of cardiac rehabilitation, which he found beneficial. Verenice reports a fall in March, resulting in a hyperextension injury to his ring finger, with persistent pain and swelling. He denies any dislocation or fracture but notes soreness when the finger is moved in certain directions. He also reports occasional back pain when engaging in strenuous activities and has not resumed his previous back exercises. Verenice is currently taking Lipitor 40 mg at night, Zetia 10 mg in the morning, a baby aspirin in the morning, and cetirizine 10 mg at bedtime as needed. He received the Prevnar 20 vaccine in July, the shingles vaccine series last December and February, and the flu vaccine in November. He is up to date on his COVID-19 vaccinations, with the most recent dose in December. He has not received a tetanus vaccine since 2011. Verenice has a family history of heart disease, with his father having undergone two heart surgeries. His sister has a history of asthma. He reports mild anxiety but denies any need for additional medication. He has not had a recent eye examination and did not complete a stool test for blood last year. He does not have a formal healthcare power of sports attorney but designates his , Beatriz, as his primary contact for medical decisions. PAST MEDICAL HISTORY Diagnosis Date CHEST PAIN NOS 03/22/2008 Elevated CK 03/01/2009 Hypercholesteremia 02/11/2009 HDL and TG very good Nasal septal deviation baseball injury PAIN ABDOMEN( Right Lower Quadrant) 01/28/2007 Palpitations 01/28/2007 Predominant disturbance of emotions 01/28/2007 Vertigo 01/16/2009 Current Outpatient Medications Medication Sig atorvastatin (LIPITOR) 40 mg tablet Take 40 mg by mouth daily at bedtime. aspirin, enteric coated (ASPIRIN, ENTERIC COATED) 81 mg EC tablet Take 81 mg by mouth once daily. atenolol (TENORMIN) 50 mg tablet Take 0.5 tablets by mouth two times a day. ezetimibe (ZETIA) 10 mg tablet Take 1 tablet by mouth once daily. cetirizine (ZYRTEC) 10 mg tablet Take 1 tablet by mouth at bedtime as needed. No current facility-administered medications for this visit. ALLERGIES Allergen Reactions Niacin Intolerance flushing (with the regular niacin); also made BP go up Simvastatin Intolerance muscles aches FAMILY HISTORY Problem Relation Age of Onset other (TIA) Mother Heart disease Father Coronary Artery Disease Father 50 Has had CABG twice Asthma Sister Social History Tobacco Use Smoking status: Former Current packs/day: 0.50 Average packs/day: 0.5 packs/day for 5.0 years (2.5 ttl pk-yrs) Types: Cigarettes Smokeless tobacco: Never Substance Use Topics Alcohol use: No Drug use: No Review of Systems Objective BP 131/76 Pulse (!) 54 Resp 16 Ht 170.5 cm (5' 7.13) Wt 75.4 kg (166 lb 3.6 oz) BMI 25.94 kg/m? Last 5 Encounter Wt Readings: Date: Wt: 07/17/2024 75.4 kg (166 lb 3.6 oz) 07/15/2023 77.6 kg (171 lb) 07/13/2022 77.1 kg (170 lb) 07/10/2021 76.2 kg (168 lb) 07/09/2020 75.6 kg (166 lb 9.6 oz) No waist measurement recorded Estimated body mass index is 25.94 kg/m? as calculated from the following: Height as of this encounter: 170.5 cm (5' 7.13). Weight as of this encounter: 75.4 kg (166 lb 3.6 oz). Last 5 Encounter BP Readings: Date: BP: 07/17/2024 131/76 07/15/2023 128/80 07/13/2022 134/86 07/10/2021 118/76 07/09/2020 116/68 Physical Exam Vitals reviewed. Constitutional: Appearance: Normal appearance. HENT: Head: Normocephalic. Right Ear: Tympanic membrane, ear canal and external ear normal. Left Ear: Tympanic membrane, ear canal and external ear normal. Mouth/Throat: Mouth: Mucous membranes are moist. Pharynx: Oropharynx is clear. Eyes: Extraocular Movements: Extraocular movements intact. Conjunctiva/sclera: Conjunctivae normal. Cardiovascular: Rate and Rhythm: Normal rate and regular rhythm. Pulses: Normal pulses. Heart sounds: Normal heart sounds. Pulmonary: Effort: Pulmonary effort is normal. Breath sounds: Normal breath sounds. Abdominal: General: Abdomen is flat. There is no distension. Palpations: Abdomen is soft. There is no mass. Musculoskeletal: Cervical back: Normal range of motion. Right lower leg: No edema. Left lower leg: No edema. Skin: General: Skin is warm and dry. Neurological: General: No focal deficit present. Mental Status: He is alert and oriented to person, place, and time. Psychiatric: Attention and Perception: Attention and perception normal. Mood and Affect: Mood and affect normal. Speech: Speech normal. Behavior: Behavior normal. Thought Content: Thought content normal. Cognition and Memory: Cognition and memory normal. Judgment: Judgment normal. Assessment and Plan See below Verenice Ahn is a 69 year old male here for a Medicare wellness visit. Medicare Health Risk Assessment General Health Good Exercise: Minutes/Day 50 min Exercise: Days/Week 6 days Alcohol: Daily Use Never Alcohol: Drinks/Day Patient does not drink Alcohol: 6 or more drinks Never Feel off balance No Concerns: Teeth/Dentures No Concerns: Sexual function No Troubled by feelings Anxious--not severe Frequency: Eating healthy diet Nearly every day (Every day) ADLs requiring help None of the above Safety precautions in home/vehicle Yes Smoke, vape, chews tobacco No Difficulty hearing No Difficulty seeing No Current Providers Specialists: I have reviewed specialist-related care of the patient in the medical record. Outside specialists seen: Dr. Magdiel Frye--dermatology ; [facility]--[facility] and [facility] Laurent Medical/Family history review Reviewed and updated problem list, medical/surgical/family/social history, medications, and allergies. Opioid use review Opioid Medications (last 90 days) No data to display Anxiety/Depression screening PHQ-9 Score: 0. ADONIS-7 Score: 1 (Minimal Anxiety) Recommendation: no further intervention at this time Cognitive screening Mini Cog Score: 5 Cognitive screening reviewed and No further action needed (score 3-5). Functional Observation Was the patient's Timed Up AND Go test unsteady or >= 12 seconds? No Advance Care Planning Surrogate decision maker and/or advance care plan documented Does not have HCDPOA or LW, but is surrogate decision maker Measurements BP 131/76 Pulse (!) 54 Resp 16 Ht 170.5 cm (5' 7.13) Wt 75.4 kg (166 lb 3.6 oz) BMI 25.94 kg/m? Vision Screening: Hearing/vision screening results: Vision Screening Right eye - Without correction: With correction: 20/25 Left eye - Without correction: With correction: 20/25 Both eyes - Without correction: With correction: 20/20 Assessment/Plan Medicare annual wellness visit, subsequent () - Counseled on healthy diet and regular exercise - Fall avoidance information provided - Personalized prevention plan provided # Medicare annual wellness visit, subsequent () - Completed Medicare annual wellness visit. - Reviewed and updated medication list. - Discussed importance of maintaining a healthy lifestyle, including regular exercise and a balanced diet. - Scheduled follow-up appointment for next year. # Primary hypertension (I10) - Blood pressure well-controlled on current regimen of atenolol 25 mg daily. - Continue current medication. 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 - No current chest pain or dyspnea. - Advised to continue cardiac rehabilitation exercises and gradually increase physical activity. - Follow-up with water hauler Dr. Davis in November. # Encounter for immunization (Z23) - Reviewed immunization history. - Patient received Prevnar 20 in July 2022, RSV vaccine on December 23, 2022, shingles vaccine series completed in December and February, and flu shot in November. - Discussed tetanus booster; provided instructions to receive at pharmacy. - Discussed potential upcoming COVID-19 vaccine. # Encounter for screening examination for other mental health and behavioral disorders (Z13.39) # Screening for depression (Z13.31) - Completed anxiety and depression screenings; no significant findings. - Patient reports mild anxiety, managed with current medications. # Screening for colon cancer (Z12.11) - Patient did not complete stool test for blood last year. - Ordered stool test kit for patient to complete and return. # Acute non-recurrent frontal sinusitis (J01.10) - Recent episode of sinusitis with congestion, frontal sinus pressure, and chills. - Symptoms improved with cetirizine 10 mg at bedtime as needed. - Advised use of saline nasal spray for congestion relief. # Synovitis and tenosynovitis (M65.90) - Persistent soreness in the right ring finger following a fall in March. - No evidence of triggering or significant range of motion limitation. - Recommended Voltaren gel for inflammation and ice application as needed. # Mixed hyperlipidemia (E78.2) - Lipid profile from March: Total cholesterol 135 mg/dL, triglycerides 47 mg/dL, HDL 69 mg/dL, LDL 57 mg/dL. - Recent labs show liver enzymes trending towards normal. - Continue current medications: Lipitor 40 mg at night, Zetia 10 mg daily. - Emphasized importance of maintaining a low LDL to prevent further plaque formation. Gorge Clark MD Recording using [employer] H[employer] software for draft documentation of the visit was discussed with the patient/authorized patient accounting representative; all questions welcomed and answered. Patient/authorized patient accounting representative agreed to proceed CNOV Observed: 07/17/2024 1:20 PM Status: COMPLETED Source: [facility] Office Visit (INTMWS) VERENICE AHN ([id number]) 1955 M Date Time Provider Department 07/17/24 1:20 PM GORGE CLARK INTMWS During your visit today, we recorded the following information about you: Pulse Respiration Blood pressure Weight 54/minute 16/minute 131/76 75.4 kg Height 1.705 m Gorge Clark MD 07/17/2024 2:17 PM Signed This note was created using JumpChatriter. Subjective Verenice Ahn is a 69 year old male. HISTORY Verenice Ahn is a 69 year old gentleman here for Medicare Annual Wellness Visit, yearly exam and follow up appointment. Verenice is a 69-year-old male with a history of CAD, presenting for a Medicare Annual Wellness Visit. Verenice underwent a quadruple bypass surgery on 09/28/2023 and was hospitalized for one week. Postoperatively, he experienced significant sinus drainage and a persistent cough, which he believes prolonged his hospital stay. He reports concerns about potential dehiscence due to the intensity of the cough, which caused pain, especially around the areas where tubes and lines were inserted. He also reports difficulty sleeping during his hospital stay due to noise and frequent interruptions for vital signs and blood draws. Approximately two weeks ago, Verenice experienced symptoms suggestive of a sinus infection, including thick, yellow nasal discharge, frontal sinus pain, and chills. He managed these symptoms with cetirizine and reports improvement without the use of antibiotics. He continues to experience mild congestion. Verenice has resumed walking 6-7 days a week but notes a decrease in strength due to postoperative restrictions on lifting more than 10 pounds for three months. He reports a weight loss of approximately 14-15 pounds during his hospital stay, with a current weight of 165-166 pounds, down from 172 pounds preoperatively. He has not yet resumed weightlifting, as advised by his healthcare provider to wait a year for full healing. He completed 36 sessions of cardiac rehabilitation, which he found beneficial. Verenice reports a fall in March, resulting in a hyperextension injury to his ring finger, with persistent pain and swelling. He denies any dislocation or fracture but notes soreness when the finger is moved in certain directions. He also reports occasional back pain when engaging in strenuous activities and has not resumed his previous back exercises. Verenice is currently taking Lipitor 40 mg at night, Zetia 10 mg in the morning, a baby aspirin in the morning, and cetirizine 10 mg at bedtime as needed. He received the Prevnar 20 vaccine in July, the shingles vaccine series last December and February, and the flu vaccine in November. He is up to date on his COVID-19 vaccinations, with the most recent dose in December. He has not received a tetanus vaccine since 2011. Verenice has a family history of heart disease, with his father having undergone two heart surgeries. His sister has a history of asthma. He reports mild anxiety but denies any need for additional medication. He has not had a recent eye examination and did not complete a stool test for blood last year. He does not have a formal healthcare power of sports attorney but designates his , Beatriz, as his primary contact for medical decisions. PAST MEDICAL HISTORY Diagnosis Date CHEST PAIN NOS 03/22/2008 Elevated CK 03/01/2009 Hypercholesteremia 02/11/2009 HDL and TG very good Nasal septal deviation baseball injury PAIN ABDOMEN( Right Lower Quadrant) 01/28/2007 Palpitations 01/28/2007 Predominant disturbance of emotions 01/28/2007 Vertigo 01/16/2009 Current Outpatient Medications Medication Sig atorvastatin (LIPITOR) 40 mg tablet Take 40 mg by mouth daily at bedtime. aspirin, enteric coated (ASPIRIN, ENTERIC COATED) 81 mg EC tablet Take 81 mg by mouth once daily. atenolol (TENORMIN) 50 mg tablet Take 0.5 tablets by mouth two times a day. ezetimibe (ZETIA) 10 mg tablet Take 1 tablet by mouth once daily. cetirizine (ZYRTEC) 10 mg tablet Take 1 tablet by mouth at bedtime as needed. No current facility-administered medications for this visit. ALLERGIES Allergen Reactions Niacin Intolerance flushing (with the regular niacin); also made BP go up Simvastatin Intolerance muscles aches FAMILY HISTORY Problem Relation Age of Onset other (TIA) Mother Heart disease Father Coronary Artery Disease Father 50 Has had CABG twice Asthma Sister Social History Tobacco Use Smoking status: Former Current packs/day: 0.50 Average packs/day: 0.5 packs/day for 5.0 years (2.5 ttl pk-yrs) Types: Cigarettes Smokeless tobacco: Never Substance Use Topics Alcohol use: No Drug use: No Review of Systems Objective BP 131/76 Pulse (!) 54 Resp 16 Ht 170.5 cm (5' 7.13) Wt 75.4 kg (166 lb 3.6 oz) BMI 25.94 kg/m? Last 5 Encounter Wt Readings: Date: Wt: 07/17/2024 75.4 kg (166 lb 3.6 oz) 07/15/2023 77.6 kg (171 lb) 07/13/2022 77.1 kg (170 lb) 07/10/2021 76.2 kg (168 lb) 07/09/2020 75.6 kg (166 lb 9.6 oz) No waist measurement recorded Estimated body mass index is 25.94 kg/m? as calculated from the following: Height as of this encounter: 170.5 cm (5' 7.13). Weight as of this encounter: 75.4 kg (166 lb 3.6 oz). Last 5 Encounter BP Readings: Date: BP: 07/17/2024 131/76 07/15/2023 128/80 07/13/2022 134/86 07/10/2021 118/76 07/09/2020 116/68 Physical Exam Vitals reviewed. Constitutional: Appearance: Normal appearance. HENT: Head: Normocephalic. Right Ear: Tympanic membrane, ear canal and external ear normal. Left Ear: Tympanic membrane, ear canal and external ear normal. Mouth/Throat: Mouth: Mucous membranes are moist. Pharynx: Oropharynx is clear. Eyes: Extraocular Movements: Extraocular movements intact. Conjunctiva/sclera: Conjunctivae normal. Cardiovascular: Rate and Rhythm: Normal rate and regular rhythm. Pulses: Normal pulses. Heart sounds: Normal heart sounds. Pulmonary: Effort: Pulmonary effort is normal. Breath sounds: Normal breath sounds. Abdominal: General: Abdomen is flat. There is no distension. Palpations: Abdomen is soft. There is no mass. Musculoskeletal: Cervical back: Normal range of motion. Right lower leg: No edema. Left lower leg: No edema. Skin: General: Skin is warm and dry. Neurological: General: No focal deficit present. Mental Status: He is alert and oriented to person, place, and time. Psychiatric: Attention and Perception: Attention and perception normal. Mood and Affect: Mood and affect normal. Speech: Speech normal. Behavior: Behavior normal. Thought Content: Thought content normal. Cognition and Memory: Cognition and memory normal. Judgment: Judgment normal. Assessment and Plan See below Verenice Ahn is a 69 year old male here for a Medicare wellness visit. Medicare Health Risk Assessment General Health Good Exercise: Minutes/Day 50 min Exercise: Days/Week 6 days Alcohol: Daily Use Never Alcohol: Drinks/Day Patient does not drink Alcohol: 6 or more drinks Never Feel off balance No Concerns: Teeth/Dentures No Concerns: Sexual function No Troubled by feelings Anxious--not severe Frequency: Eating healthy diet Nearly every day (Every day) ADLs requiring help None of the above Safety precautions in home/vehicle Yes Smoke, vape, chews tobacco No Difficulty hearing No Difficulty seeing No Current Providers Specialists: I have reviewed specialist-related care of the patient in the medical record. Outside specialists seen: Dr. Magdiel Frye--dermatology ; [facility]--Azar and [facility] Laurent Medical/Family history review Reviewed and updated problem list, medical/surgical/family/social history, medications, and allergies. Opioid use review Opioid Medications (last 90 days) No data to display Anxiety/Depression screening PHQ-9 Score: 0. ADONIS-7 Score: 1 (Minimal Anxiety) Recommendation: no further intervention at this time Cognitive screening Mini Cog Score: 5 Cognitive screening reviewed and No further action needed (score 3-5). Functional Observation Was the patient's Timed Up AND Go test unsteady or >= 12 seconds? No Advance Care Planning Surrogate decision maker and/or advance care plan documented Does not have HCDPOA or LW, but is surrogate decision maker Measurements BP 131/76 Pulse (!) 54 Resp 16 Ht 170.5 cm (5' 7.13) Wt 75.4 kg (166 lb 3.6 oz) BMI 25.94 kg/m? Vision Screening: Hearing/vision screening results: Vision Screening Right eye - Without correction: With correction: 20/25 Left eye - Without correction: With correction: 20/25 Both eyes - Without correction: With correction: 20/20 Assessment/Plan Medicare annual wellness visit, subsequent (Z.) - Counseled on healthy diet and regular exercise - Fall avoidance information provided - Personalized prevention plan provided # Medicare annual wellness visit, subsequent (Z00.) - Completed Medicare annual wellness visit. - Reviewed and updated medication list. - Discussed importance of maintaining a healthy lifestyle, including regular exercise and a balanced diet. - Scheduled follow-up appointment for next year. # Primary hypertension (I10) - Blood pressure well-controlled on current regimen of atenolol 25 mg daily. - Continue current medication. 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 - No current chest pain or dyspnea. - Advised to continue cardiac rehabilitation exercises and gradually increase physical activity. - Follow-up with water hauler Dr. Davis in November. # Encounter for immunization (Z23) - Reviewed immunization history. - Patient received Prevnar 20 in July 2022, RSV vaccine on December 23, 2022, shingles vaccine series completed in December and February, and flu shot in November. - Discussed tetanus booster; provided instructions to receive at pharmacy. - Discussed potential upcoming COVID-19 vaccine. # Encounter for screening examination for other mental health and behavioral disorders (Z13.39) # Screening for depression (Z13.31) - Completed anxiety and depression screenings; no significant findings. - Patient reports mild anxiety, managed with current medications. # Screening for colon cancer (Z12.11) - Patient did not complete stool test for blood last year. - Ordered stool test kit for patient to complete and return. # Acute non-recurrent frontal sinusitis (J01.10) - Recent episode of sinusitis with congestion, frontal sinus pressure, and chills. - Symptoms improved with cetirizine 10 mg at bedtime as needed. - Advised use of saline nasal spray for congestion relief. # Synovitis and tenosynovitis (M65.90) - Persistent soreness in the right ring finger following a fall in March. - No evidence of triggering or significant range of motion limitation. - Recommended Voltaren gel for inflammation and ice application as needed. # Mixed hyperlipidemia (E78.2) - Lipid profile from March: Total cholesterol 135 mg/dL, triglycerides 47 mg/dL, HDL 69 mg/dL, LDL 57 mg/dL. - Recent labs show liver enzymes trending towards normal. - Continue current medications: Lipitor 40 mg at night, Zetia 10 mg daily. - Emphasized importance of maintaining a low LDL to prevent further plaque formation. Gorge Clark MD Recording using [employer] software for draft documentation of the visit was discussed with the patient/authorized patient accounting representative; all questions welcomed and answered. Patient/authorized patient accounting representative agreed to proceed Gorge Clark MD 07/17/2024 2:14 PM Addendum Continue taking your prescribed medications as follows: - Lipitor (atorvastatin) 40 mg at night - Zetia 10 mg in the morning - Atenolol (take half of a 50 mg tablet as you have been) - Baby aspirin in the morning - Cetirizine (Zyrtec) 10 mg at bedtime as needed for congestion and allergies For your sinus issues, continue using cetirizine to help reduce drainage. If you become more congested, consider using a saline nasal spray to help clear your nasal passages. For your painful, swollen ring finger, if the soreness persists, use Voltaren gel on the affected joint to help reduce inflammation. Maintain your active lifestyle by: - Continuing your daily walking (you?re already walking most days) - Gradually reintroducing light core strengthening and resistance exercises (such as isometric exercises) to rebuild muscle strength without straining your healing chest. Vaccinations and preventative care: - Your pneumonia (Prevnar 20), shingles, RSV, and flu shots are up to date - When it is time for a COVID vaccine or when you?re due for your tetanus shot, remember that you can receive the tetanus (Tdap) vaccine at your pharmacy For colon cancer screening, a stool test kit for blood will be provided so you can continue annual screening at home Your next Medicare wellness appointment is scheduled for one year from now; if you notice any new or worsening symptoms (such as increased chest pain, finger pain, or sinus issues), please contact our office When having future blood work done, drink plenty of water beforehand to ensure accurate results and support your overall lab values Please follow these recommendations after you leave the clinic and contact us if you experience any concerns. Screening schedule The following prevention plan is recommended: DTaP,Tdap,Td Vaccine(2 - Td or Tdap) due on 01/12/2022 Colorectal Cancer Screening due on 07/15/2023 WHAT YOU CAN DO TO PREVENT FALLS Many falls can be prevented. By making some changes, you can lower your chances of falling. Four things YOU can do to prevent falls for you* and your caregiver 1. Begin a regular exercise program Exercise is one of the most important ways to lower your chances of falling. It makes you stronger and helps you feel better. Exercises that improve balance and coordination (like Jarod Chi) are the most helpful. Lack of exercise leads to weakness and increases your chances of falling. Ask your doctor or health care provider about the best type of exercise program for you. 2. Have your health care provider review your medicines Have your doctor or pharmacist review all the medicines you take, even aubp-nuz-fhqxcmp medicines. As you get older, the way medicines work in your body can change. Some medicines, or combinations of medicines, can make you sleepy or dizzy and can cause you to fall. 3. Have your vision checked Have your eyes checked by an eye doctor at least once a year. You may be wearing the wrong glasses or have a condition like glaucoma or cataracts that limits your vision. Poor vision can increase your chances of falling. 4. Make your home safer About half of all falls happen at home. To make your home safer: Remove things you can trip over (like papers, books, clothes, and shoes) from stairs and places where you walk. Remove small throw rugs or use double-sided tape to keep the rugs from slipping. Keep items you use often in cabinets you can reach easily without using a step stool. Have grab bars put in next to your toilet and in the tub or shower. Use non-slip mats in the bathtub and on shower floors. Improve the lighting in your home. As you get older, you need brighter lights to see well. Hang light-weight curtains or shades to reduce glare. Have handrails and lights put in on all staircases. Wear shoes both inside and outside the house. Avoid going barefoot or wearing slippers. For more information, contact: Centers for Disease Control and Prevention www.cdc.gov/injury * This information may not apply if you have certain medical conditions. 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] Encounter for immunization [Z23] Encounter for screening examination for other mental health and behavioral disorders [Z13.39] Screening for depression [Z13.31] Screening for colon cancer [Z12.11] Acute non-recurrent frontal sinusitis [J01.10] Synovitis and tenosynovitis [M65.90] Mixed hyperlipidemia [E78.2] Order(s):cetirizine (ZYRTEC) 10 mg tabletTake 1 tablet by mouth at bedtime as needed.Disp: Rfl: TDAP PRINTED PHARMACY INSTRUCTIONS [[id number]] Order #: [id number]: 1 ANXIETY SCREENING [] Order #: [id number]: 1 DEPRESSION SCREENING [] Order #: [id number]: 1 ADVANCE CARE PLAN DISCUSSION [] Order #: [id number]: 1 IMMUNOCHEMICAL FECAL OCCULT BLOOD TEST [SQIFOBT] Order #: [id number]. #:[id number] Prescriptions as of 07/17/2024 - atorvastatin (LIPITOR) 40 mg tablet Take 40 mg by mouth daily at bedtime. - cetirizine (ZYRTEC) 10 mg tablet Take 1 tablet by mouth at bedtime as needed. - aspirin, enteric coated (ASPIRIN, ENTERIC COATED) 81 mg EC tablet Take 81 mg by mouth once daily. - atenolol (TENORMIN) 50 mg tablet Take 0.5 tablets by mouth two times a day. - ezetimibe (ZETIA) 10 mg tablet Take 1 tablet by mouth once daily. Problem List As Of Date 07/17/2024 Noted Resolved PALPITATIONS [R00.2] 01/28/2007 Shortness of Breath [R06.02] 01/28/2007 03/01/2009 ABNORM ELECTROCARDIOGRAM [R94.31] 03/13/2007 03/22/2008 UNCERTAIN BEHAV NEOPL SKIN [D48.5] 05/04/2008 05/10/2008 Hyperlipidemia [E78.5] 02/11/2009 01/13/2012 Hypercholesteremia [E78.00] 01/13/2012 Elevated CK [R74.8] 03/01/2009 Other instructions from your clinician: Continue taking your prescribed medications as follows: - Lipitor (atorvastatin) 40 mg at night - Zetia 10 mg in the morning - Atenolol (take half of a 50 mg tablet as you have been) - Baby aspirin in the morning - Cetirizine (Zyrtec) 10 mg at bedtime as needed for congestion and allergies For your sinus issues, continue using cetirizine to help reduce drainage. If you become more congested, consider using a saline nasal spray to help clear your nasal passages. For your painful, swollen ring finger, if the soreness persists, use Voltaren gel on the affected joint to help reduce inflammation. Maintain your active lifestyle by: - Continuing your daily walking (you?re already walking most days) - Gradually reintroducing light core strengthening and resistance exercises (such as isometric exercises) to rebuild muscle strength without straining your healing chest. Vaccinations and preventative care: - Your pneumonia (Prevnar 20), shingles, RSV, and flu shots are up to date - When it is time for a COVID vaccine or when you?re due for your tetanus shot, remember that you can receive the tetanus (Tdap) vaccine at your pharmacy For colon cancer screening, a stool test kit for blood will be provided so you can continue annual screening at home Your next Medicare wellness appointment is scheduled for one year from now; if you notice any new or worsening symptoms (such as increased chest pain, finger pain, or sinus issues), please contact our office When having future blood work done, drink plenty of water beforehand to ensure accurate results and support your overall lab values Please follow these recommendations after you leave the clinic and contact us if you experience any concerns. Screening schedule The following prevention plan is recommended: DTaP,Tdap,Td Vaccine(2 - Td or Tdap) due on 01/12/2022 Colorectal Cancer Screening due on 07/15/2023 WHAT YOU CAN DO TO PREVENT FALLS Many falls can be prevented. By making some changes, you can lower your chances of falling. Four things YOU can do to prevent falls for you* and your caregiver 1. Begin a regular exercise program Exercise is one of the most important ways to lower your chances of falling. It makes you stronger and helps you feel better. Exercises that improve balance and coordination (like Jarod Chi) are the most helpful. Lack of exercise leads to weakness and increases your chances of falling. Ask your doctor or health care provider about the best type of exercise program for you. 2. Have your health care provider review your medicines Have your doctor or pharmacist review all the medicines you take, even tvsb-rip-xlhdlxp medicines. As you get older, the way medicines work in your body can change. Some medicines, or combinations of medicines, can make you sleepy or dizzy and can cause you to fall. 3. Have your vision checked Have your eyes checked by an eye doctor at least once a year. You may be wearing the wrong glasses or have a condition like glaucoma or cataracts that limits your vision. Poor vision can increase your chances of falling. 4. Make your home safer About half of all falls happen at home. To make your home safer: Remove things you can trip over (like papers, books, clothes, and shoes) from stairs and places where you walk. Remove small throw rugs or use double-sided tape to keep the rugs from slipping. Keep items you use often in cabinets you can reach easily without using a step stool. Have grab bars put in next to your toilet and in the tub or shower. Use non-slip mats in the bathtub and on shower floors. Improve the lighting in your home. As you get older, you need brighter lights to see well. Hang light-weight curtains or shades to reduce glare. Have handrails and lights put in on all staircases. Wear shoes both inside and outside the house. Avoid going barefoot or wearing slippers. For more information, contact: Centers for Disease Control and Prevention www.cdc.gov/injury * This information may not apply if you have certain medical conditions. Prescriptions ordered this encounter Disp Refills Start End CETIRIZINE 10 MG TABLET 07/17/2024 Class: OTC Route: ORAL Sig: Take 1 tablet by mouth at bedtime as needed. Medications Discontinued During This Encounter Prescriptions - diphenhydramine HCl (ANTIHISTAMINE ALLERGY ORAL) (Discontinued) - aspirin (ASPIR-81 ORAL) (Discontinued) Level of Service: PPPS, SUBSEQ VISIT [G0439] Additional E/M codes: OFFICE/OUTPATIENT ESTABLISHED LOW MDM 2* Disposition: Return in about 1 year (around 07/17/2025) for Medicare Wellness. Follow-up and Disposition History for Encounter Date Provider Department Center 07/17/2024 [id number][facility]ORGE [facility] Encounter Status:Closed by GORGE CLARK on 07/17/24 PROGRESS NOTE Observed: 01/03/2024 11:47 AM Status: COMPLETED [facility] 01/03/24 1147 [facility]PCI Late Drop? Program late drop? Yes [facility]PCI Outreach Assessment Selection Which outreach assessment are you completing? 90 Day [facility]PCI - 90 Day Outreach Did patient answer phone call? No PROGRESS NOTE Observed: 01/03/2024 11:45 AM Status: COMPLETED Source: [facility] 90 day outreach-late dr op ADMIT DATE: 09/28/2023 DISCHARGE DATE: 10/05/2023 SURGERY: 09/28/23: CABG x4, left radial harvest, LEV[facility] TREATMENT TEAM: Primary Care Physician: GORGE CLARK Senior Executive Compensation Analyst: Lizbeth Cardiology Chart reviewed for BPCI outreach. Phone call to patient, no answer, left VM to please return call. Closing BPCI program. ALLERGIES DATE TYPE / CODE NAME / CODE REACTION SEVERITY SOURCE 08/22/2013 DRUG INGREDI/[id number]( SNOMED CT) SIMVASTATIN INTOLERANCE [facility] 07/14/2012 DRUG INGREDI/[id number]( SNOMED CT) NIACIN INTOLERANCE [facility] ENCOUNTERS ADMIT/DISCHARGE ACCOUNT NUMBER ADMITTING ENCOUNTER CLASS LOC ATION SOURCE 07/17/2024/ 5 [id number] [facility] PAYERS ENCOUNTER GUARANTOR PAYER SUBSCRIBER SOURCE 07/17/2024 Primary Insuranc e:MEDICARE A AND BPolicy Number: [id number] Date:4719-11-18Lara Name:Maria G MARTINEZ: [id number] [place] [address] [facility] 07/17/2024 Secondary Insura nce:BEAR MEDICARE SUPPLEMENTPolicy Number: [id number] Date:6111-30-58Txwt Name:Vickey MARTINEZ: [id number] [place] [address] [facility]
[2024-12-11 16:55] LABS: AST(SGOT) 39 U/L (<=37); Alanine Aminotransfer ALT/SGPT 41 U/L (<=46); Albumin, Serum 4.4 g/dL (3.4-4.8); Alkaline Phosphatase 74 U/L (40-129); Bilirubin, Direct 0.34 mg/dL (0.00-0.30); Cholesterol 127 mg/dL (<=200); Globulin 2.4 g/dL (2.2-4.2); Low Density Lipoprotein Calc. 55 mg/dL; Triglycerides 50 mg/dL; Very Low Density Lipoprotein 10 mg/dL (5-40); cholesterol:hdl ratio screen 2.05
== END | disposition home or self-care (01) ==
LOC: LAB 14:24
PROVIDERS: PCP Internal Medicine; Referring Provider Student in an Organized Health Care Education/Training Program; Visit Provider Student in an Organized Health Care Education/Training Program
DX: E78.2 Mixed hyperlipidemia (principal); Z95.1 Presence of aortocoronary bypass graft
CPT/HCPCS: 36415; 80061; 80076